=== PATIENT | male | born 1980 | race Caucasian/White ===

== ENCOUNTER 2018-03-25 07:48 | Emergency (ER) | payer MEDICAID ==
[~2018-03-25] VITALS: Ht 177.8 cm; Wt 81.8 kg
[~2018-03-25 07:48] MED LIST: ACET-2119 PO; ARIP5TAB4 PO; BENZ1TAB7 PO; CLON-528 PO; CLON0.1T PO; DIAZ10TA PO; LEVO112T39 PO; MAGN800O PO; METO-539 PO; METO50TA7 PO; MULT1TAB74 PO; OMEP20CA10 PO; P-EP-35 PO; POLY119P2 PO
[2018-03-25 08:03] VITALS: BP 118/82
[2018-03-25] MEDS ORDERED: TETanus/Pertussis (Acell)/Diphther VAC/PF (Tdap-Adult) 0.5ml syringe IM ONE (08:45)
== END 2018-03-25 09:33 | disposition home or self-care (01) ==
LOC: ER 07:49
DX: S61.012A Laceration without foreign body of left thumb without damage to nail, initial encounter (principal); F43.10 Post-traumatic stress disorder, unspecified; Z79.899 Other long term (current) drug therapy; W45.8XXA Other foreign body or object entering through skin, initial encounter; Y93.E8 Activity, other personal hygiene; Y99.8 Other external cause status; Y92.89 Other specified places as the place of occurrence of the external cause
CPT/HCPCS: 12001; 90471; 90715; 99283

== ENCOUNTER 2018-10-18 10:02 | Inpatient (IN) | payer MEDICAID ==
[~2018-10-18] VITALS: Ht 180.3 cm; Wt 70.0 kg
[~2018-10-18 10:02] MED LIST changes: -ACET-2119 PO; +CIPR-230 PO; +METR-211 PO
[2018-10-18] MEDS ORDERED: normal saline 1000ML IV soln IV ONE (10:20)
[2018-10-18] MEDS ORDERED: iohexol 300mg/ml 100ml inj. ONE (10:23)
[2018-10-18] MEDS ORDERED: LORazepam 2 mg/ml vial IM ONE ×2 (10:25→11:05)
[2018-10-18 11:22] LABS: BASOPHILS % (AUTO) 0.5 % (0-1); EOSINOPHILS # (AUTO) 0.1 X10'3 (0-0.9); EOSINOPHILS % (AUTO) 1.1 % (0-6); HEMOGLOBIN 14.4 g/dl (14.0-17.9); LYMPHOCYTES # (AUTO) 1.3 X10'3 (1.1-4.8); LYMPHOCYTES % (AUTO) 16.5 % (21-51); MEAN CORPUSCULAR HEMOGLOBIN 31.4 PG (27.0-31.0); MEAN CORPUSCULAR HGB CONC 32.6 % (33.0-36.5); MEAN CORPUSCULAR VOLUME 96.3 FL (78-98); MEAN PLATELET VOLUME 8.6 FL (7.4-10.4); MONOCYTES # (AUTO) 0.4 X10'3 (0-0.9); MONOCYTES % (AUTO) 5.2 % (2-12); NEUTROPHILS # (AUTO) 6.2 X10'3 (1.8-7.7); NEUTROPHILS % (AUTO) 76.7 % (42-75); PLATELET COUNT 563 X10'3 (140-440); RED BLOOD COUNT 4.57 X10'6 (4.70-6.10); RED CELL DISTRIBUTION WIDTH 14.2 % (11.5-14.5); WHITE BLOOD COUNT 8.1 X10'3 (4.5-11.0)
[2018-10-18 11:39] LABS: INR 1.2 INR; PARTIAL THROMBOPLASTIN TIME 32 SECONDS (22-32); PROTHROMBIN TIME 11.9 SECONDS (9.0-12.0)
[2018-10-18 12:04] LABS: ALANINE AMINOTRANSFERASE 48 U/L (12-78); ALBUMIN 2.9 G/DL (3.4-5.0); ALBUMIN/GLOBULIN RATIO 0.6 (1.1-1.5); ALKALINE PHOSPHATASE 82 IU/L (46-116); ANION GAP 9 (8-16); ASPARTATE AMINO TRANSFERASE 54 U/L (10-37); BILIRUBIN,TOTAL 0.3 MG/DL (0.1-1.0); BLOOD UREA NITROGEN 14 MG/DL (7-18); BUN/CREATININE RATIO 14.1 (5.4-32.0); CALCIUM 9.1 MG/DL (8.5-10.1); CHLORIDE 105 MMOL/L (99-107); CREATININE 0.99 MG/DL (0.60-1.10); GLUCOSE 89 MG/DL (70-104); MAGNESIUM 1.6 MG/DL (1.5-2.4); SODIUM 144 MMOL/L (135-145); TOTAL CARBON DIOXIDE 29.6 MMOL/L (24-32); TOTAL PROTEIN 7.9 G/DL (6.4-8.2); eGFR 85 ML/MIN
[2018-10-18] MEDS ORDERED: morphine 4 MG/ML inj SYRINge IM ONE (12:05)
[2018-10-18] MEDS ORDERED: ondansetron 4mg rapidly disintigrating tab PO ONE (12:05)
--- NOTE | 2018-10-18 16:21 | NUR ---
SPOKE RADHA YEPEZ AT BEDSIDE IN E.D. SHE STATES THAT HH HAS NOT VISITED YET, AND THAT THERE IS NOT ENOUGH STAFFING, TO CARE FOR WOUND, AND WOUND IS TOO COMPLEX TO ADEQUATELY CARE FOR IT AT THEIR HOME. SPOKE WITH IAN AT [facility], SHE VERIFIED THAT PATIENT WILL BE OPENED ON SUNDAY. PLAN: PATIENT TO BE ADMITTED OVER WEEKEND FOR WOUND CARE, THEN OPEN WITH [facility] ON . DISCUSSED WITH DR OLSON, AND WITH CHINMAY. CALL SURYA [phone] AT TIME OF DISCHARGE, AND SHE CAN ARRANGE TRANSPORTATION.
[2018-10-18] MEDS ORDERED: LORazepam 2 mg/ml vial IV ONE (16:40)
[2018-10-18] MEDS ORDERED: acetaminophen 325mg tablet PO PRN (17:20)
[2018-10-18] MEDS ORDERED: magnesium hydroxide 30ml (MOM) UD suspension PO PRN (17:20)
[2018-10-18] MEDS ORDERED: cloNIDine 0.1 mg tablet PO PRN (17:20)
[2018-10-18] MEDS ORDERED: mag hydrox/Alum hydrox/simeth 30ml oral suspension PO PRN (17:20)
[2018-10-18] MEDS ORDERED: ondansetron/PF 4mg/2ml inj IV PRN (17:20)
--- NOTE | 2018-10-18 17:27 | NUR ---
UA cancelled by Dr Soto
--- NOTE | 2018-10-18 18:30 | NUR ---
recieved report and assumed care of pt
[2018-10-18] MEDS: polyethylene glycol 3350 17gm powd pack PO SCH (20:00)
[2018-10-18] MEDS: metroNIDAZOLE 500mg tablet PO SCH (20:11)
[2018-10-18] MEDS: loratadine/pseudoephedrine TAB.SR.12Hour PO SCH (20:12)
[2018-10-18] MEDS: aripiprazole 5mg tablet PO SCH (20:12)
[2018-10-18] MEDS: benztropine 1mg tablet PO SCH (20:12)
[2018-10-18] MEDS: clonazePAM 0.5mg tablet PO SCH (20:12)
[2018-10-18] MEDS: metoprolol succinate 25mg (24-HOUR) SR. Tablet PO SCH (20:13)
--- NOTE | 2018-10-18 20:27 | NUR ---
pt had incontinent episode. when cleaning pt up noticied raya area is bright red. nurse healthcare manager informed me that pt wears briefs at home
[2018-10-18] MEDS: ciprofloxacin 250mg tablet PO SCH (22:00)
[2018-10-18 23:32] LABS: CLARITY,URINE CLEAR (Clear); COLOR,URINE YELLOW (Yellow); UA COLLECTION TYPE STRAIGHT CATH
[2018-10-18 23:33] LABS: GLUCOSE, URINE NEGATIVE (Neg); KETONES,URINE NEGATIVE (Neg); LEUKOCYTE ESTERASE ,URINE NEGATIVE (Neg); NITRITES, URINE NEGATIVE (Neg); OCCULT BLOOD,URINE NEGATIVE (Neg); PROTEIN,URINE NEGATIVE (Neg); UROBILINOGEN,URINE 0.2 E.U/dL (0.2-1.0)
--- NOTE | 2018-10-19 00:49 | NUR ---
report called to surgical corsetier
[2018-10-19 01:00] VITALS: BP 111/68
[2018-10-19 06:38] LABS: BASOPHILS % (AUTO) 0.4 % (0-1); EOSINOPHILS # (AUTO) 0.1 X10'3 (0-0.9); EOSINOPHILS % (AUTO) 1.9 % (0-6); HEMATOCRIT 39.1 % (42.0-52.0); LYMPHOCYTES # (AUTO) 1.2 X10'3 (1.1-4.8); LYMPHOCYTES % (AUTO) 15.9 % (21-51); MEAN CORPUSCULAR HEMOGLOBIN 32.4 PG (27.0-31.0); MEAN CORPUSCULAR HGB CONC 33.2 % (33.0-36.5); MEAN CORPUSCULAR VOLUME 97.5 FL (78-98); MONOCYTES # (AUTO) 0.6 X10'3 (0-0.9); MONOCYTES % (AUTO) 7.3 % (2-12); NEUTROPHILS # (AUTO) 5.8 X10'3 (1.8-7.7); NEUTROPHILS % (AUTO) 74.5 % (42-75); PLATELET COUNT 427 X10'3 (140-440); RED CELL DISTRIBUTION WIDTH 14.1 % (11.5-14.5); WHITE BLOOD COUNT 7.7 X10'3 (4.5-11.0)
[2018-10-19 06:44] LABS: ALBUMIN 2.5 G/DL (3.4-5.0); ANION GAP 9 (8-16); BLOOD UREA NITROGEN 14 MG/DL (7-18); BUN/CREATININE RATIO 14.4 (5.4-32.0); CALCIUM 8.7 MG/DL (8.5-10.1); CHLORIDE 107 MMOL/L (99-107); CREATININE 0.97 MG/DL (0.60-1.10); GLUCOSE 95 MG/DL (70-104); POTASSIUM 4.1 MMOL/L (3.5-5.1); SODIUM 145 MMOL/L (135-145); TOTAL CARBON DIOXIDE 29.2 MMOL/L (24-32); eGFR 87 ML/MIN
--- NOTE | 2018-10-19 06:48 | NUR ---
Problems reprioritized. Patient report given, questions answered & plan of care reviewed with Roxanna RN
--- NOTE | 2018-10-19 06:50 | NUR ---
Patient in room LORIN 346. I have received report from FRANCOISE Alexandra and had the opportunity to ask questions and assume patient care.
[2018-10-19 08:00] VITALS: BP 111/67
[2018-10-19] MEDS: polyethylene glycol 3350 17gm powd pack PO SCH (08:00)
[2018-10-19] MEDS: loratadine/pseudoephedrine TAB.SR.12Hour PO SCH ×2 (08:00→20:55)
[2018-10-19] MEDS: metoprolol succinate 25mg (24-HOUR) SR. Tablet PO SCH ×2 (08:44→20:48)
[2018-10-19] MEDS: benztropine 1mg tablet PO SCH ×2 (08:44→20:48)
[2018-10-19] MEDS: levoTHYROXINE 112mcg tablet PO SCH (08:44)
[2018-10-19] MEDS: multivitamins, therapeutics tablet PO SCH (08:45)
[2018-10-19] MEDS: clonazePAM 0.5mg tablet PO SCH ×3 (08:45→20:48)
[2018-10-19] MEDS: aripiprazole 5mg tablet PO SCH ×2 (08:45→20:48)
[2018-10-19] MEDS: enoxaparin 40mg/0.4ml syringe SUBCUT SCH (08:46)
[2018-10-19] MEDS: metroNIDAZOLE 500mg tablet PO SCH ×3 (08:46→20:48)
[2018-10-19] MEDS: pantoprazole 40mg Tablet.DR PO SCH (09:04)
[2018-10-19] MEDS: ciprofloxacin 250mg tablet PO SCH ×2 (10:40→22:37)
[2018-10-19 11:00] VITALS: BP 107/48
[2018-10-19] MEDS ORDERED: polyethylene glycol 3350 17gm powd pack PO PRN (11:05)
[2018-10-19] MEDS: HYDROcodone/acetaminophen 5mg/325mg tablet PO PRN ×2 (14:23→23:28)
--- NOTE | 2018-10-19 16:15 | NUR ---
Attempted X3 to provide sitz bath for this patient. Patient not tolerating sitting on toilet for sitz bath, used raya-bottle to gently clean perianal rectal abcess. Patient tolerated fairly well. will continue to monitor.
--- NOTE | 2018-10-19 18:30 | NUR ---
Problems reprioritized. Patient report given, questions answered & plan of care reviewed with FRANCOISE Díaz.
[2018-10-19 20:00] VITALS: BP 113/68
[2018-10-19] MEDS: lactobacillus rhamnosus 10,000 MMU CELLS/CAPSULE PO SCH (20:48)
[2018-10-20] VITALS: BP 119/51
[2018-10-20 06:18] LABS: BASOPHILS % (AUTO) 0.4 % (0-1); EOSINOPHILS # (AUTO) 0.1 X10'3 (0-0.9); HEMATOCRIT 40.9 % (42.0-52.0); HEMOGLOBIN 13.4 g/dl (14.0-17.9); LYMPHOCYTES # (AUTO) 1.1 X10'3 (1.1-4.8); LYMPHOCYTES % (AUTO) 10.7 % (21-51); MEAN CORPUSCULAR HEMOGLOBIN 32.1 PG (27.0-31.0); MEAN CORPUSCULAR HGB CONC 32.8 % (33.0-36.5); MEAN CORPUSCULAR VOLUME 97.8 FL (78-98); MEAN PLATELET VOLUME 8.5 FL (7.4-10.4); MONOCYTES # (AUTO) 0.5 X10'3 (0-0.9); MONOCYTES % (AUTO) 5.1 % (2-12); NEUTROPHILS # (AUTO) 8.8 X10'3 (1.8-7.7); NEUTROPHILS % (AUTO) 82.8 % (42-75); PLATELET COUNT 447 X10'3 (140-440); RED BLOOD COUNT 4.18 X10'6 (4.70-6.10); RED CELL DISTRIBUTION WIDTH 14.3 % (11.5-14.5); WHITE BLOOD COUNT 10.5 X10'3 (4.5-11.0)
[2018-10-20 06:30] VITALS: BP 108/55
[2018-10-20 06:30] LABS: ALBUMIN 2.6 G/DL (3.4-5.0); ANION GAP 7 (8-16); BLOOD UREA NITROGEN 12 MG/DL (7-18); BUN/CREATININE RATIO 12.1 (5.4-32.0); CALCIUM 9.1 MG/DL (8.5-10.1); CHLORIDE 105 MMOL/L (99-107); CREATININE 0.99 MG/DL (0.60-1.10); GLUCOSE 96 MG/DL (70-104); POTASSIUM 4.3 MMOL/L (3.5-5.1); SODIUM 142 MMOL/L (135-145); eGFR 85 ML/MIN
--- NOTE | 2018-10-20 06:30 | NUR ---
Patient in room LORIN 346. I have received report from FRANCOISE Díaz and had the opportunity to ask questions and assume patient care.
[2018-10-20] MEDS: loratadine/pseudoephedrine TAB.SR.12Hour PO SCH ×2 (07:49→20:00)
[2018-10-20] MEDS: enoxaparin 40mg/0.4ml syringe SUBCUT SCH (07:49)
[2018-10-20] MEDS: benztropine 1mg tablet PO SCH ×2 (07:50→22:20)
[2018-10-20] MEDS: metoprolol succinate 25mg (24-HOUR) SR. Tablet PO SCH ×2 (07:50→21:00)
[2018-10-20] MEDS: clonazePAM 0.5mg tablet PO SCH ×3 (07:50→22:20)
[2018-10-20] MEDS: levoTHYROXINE 112mcg tablet PO SCH (07:50)
[2018-10-20] MEDS: metroNIDAZOLE 500mg tablet PO SCH ×3 (07:50→22:20)
[2018-10-20] MEDS: multivitamins, therapeutics tablet PO SCH (07:50)
[2018-10-20] MEDS: aripiprazole 5mg tablet PO SCH ×2 (07:51→22:20)
[2018-10-20] MEDS: pantoprazole 40mg Tablet.DR PO SCH (07:51)
[2018-10-20] MEDS: lactobacillus rhamnosus 10,000 MMU CELLS/CAPSULE PO SCH ×2 (07:51→22:20)
[2018-10-20] MEDS: ciprofloxacin 250mg tablet PO SCH ×2 (10:24→22:20)
[2018-10-20 11:00] VITALS: BP 93/74
--- NOTE | 2018-10-20 18:00 | NUR ---
Problems reprioritized. Patient report given, questions answered & plan of care reviewed with FRANCOISE Root.
--- NOTE | 2018-10-20 18:30 | NUR ---
Patient in room LORIN 346. I have received report from PIYUSH and had the opportunity to ask questions and assume patient care.
[2018-10-20 19:00] VITALS: BP 96/60
[2018-10-20] MEDS: nystatin 15 GM powder TP SCH (22:21)
[2018-10-21] VITALS: BP 102/70
--- NOTE | 2018-10-21 06:26 | NUR ---
Problems reprioritized. Patient report given, questions answered & plan of care reviewed with PARVIZ.
[2018-10-21 06:53] LABS: ALBUMIN 2.8 G/DL (3.4-5.0); ANION GAP 4 (8-16); BLOOD UREA NITROGEN 12 MG/DL (7-18); BUN/CREATININE RATIO 11.8 (5.4-32.0); CALCIUM 9.5 MG/DL (8.5-10.1); CHLORIDE 104 MMOL/L (99-107); CREATININE 1.02 MG/DL (0.60-1.10); GLUCOSE 98 MG/DL (70-104); POTASSIUM 4.4 MMOL/L (3.5-5.1); SODIUM 140 MMOL/L (135-145); TOTAL CARBON DIOXIDE 32.5 MMOL/L (24-32); eGFR 82 ML/MIN
[2018-10-21 06:59] LABS: BASOPHILS % (AUTO) 0.3 % (0-1); EOSINOPHILS # (AUTO) 0.1 X10'3 (0-0.9); EOSINOPHILS % (AUTO) 1.1 % (0-6); HEMATOCRIT 43.1 % (42.0-52.0); HEMOGLOBIN 14.3 g/dl (14.0-17.9); LYMPHOCYTES # (AUTO) 1.4 X10'3 (1.1-4.8); LYMPHOCYTES % (AUTO) 15.1 % (21-51); MEAN CORPUSCULAR HGB CONC 33.1 % (33.0-36.5); MEAN CORPUSCULAR VOLUME 96.8 FL (78-98); MEAN PLATELET VOLUME 9.1 FL (7.4-10.4); MONOCYTES # (AUTO) 0.6 X10'3 (0-0.9); MONOCYTES % (AUTO) 6.6 % (2-12); NEUTROPHILS # (AUTO) 6.9 X10'3 (1.8-7.7); NEUTROPHILS % (AUTO) 76.9 % (42-75); PLATELET COUNT 473 X10'3 (140-440); RED BLOOD COUNT 4.45 X10'6 (4.70-6.10); RED CELL DISTRIBUTION WIDTH 14.2 % (11.5-14.5)
[2018-10-21 07:00] VITALS: BP 114/69
[2018-10-21] MEDS: metoprolol succinate 25mg (24-HOUR) SR. Tablet PO SCH ×2 (07:45→21:34)
[2018-10-21] MEDS: levoTHYROXINE 112mcg tablet PO SCH (07:52)
[2018-10-21] MEDS: lactobacillus rhamnosus 10,000 MMU CELLS/CAPSULE PO SCH ×2 (07:52→21:34)
[2018-10-21] MEDS: clonazePAM 0.5mg tablet PO SCH ×3 (07:52→21:34)
[2018-10-21] MEDS: enoxaparin 40mg/0.4ml syringe SUBCUT SCH (07:52)
[2018-10-21] MEDS: aripiprazole 5mg tablet PO SCH ×2 (07:52→21:34)
[2018-10-21] MEDS: multivitamins, therapeutics tablet PO SCH (07:52)
[2018-10-21] MEDS: benztropine 1mg tablet PO SCH ×2 (07:52→21:34)
[2018-10-21] MEDS: pantoprazole 40mg Tablet.DR PO SCH (07:52)
[2018-10-21] MEDS: metroNIDAZOLE 500mg tablet PO SCH ×3 (07:52→21:34)
[2018-10-21] MEDS: loratadine/pseudoephedrine TAB.SR.12Hour PO SCH ×2 (07:53→21:34)
[2018-10-21] MEDS: nystatin 15 GM powder TP SCH ×2 (07:57→21:36)
--- NOTE | 2018-10-21 08:21 | NUR ---
CLEANED WOUND WITH STERILE WATER AFTER BM. LEFT OPEN TO AIR Addendum: 10/21/18 at 0822 by Connie Jeong RN Amended: Links added.
[2018-10-21] MEDS: ciprofloxacin 250mg tablet PO SCH ×2 (10:28→21:34)
[2018-10-21 11:30] VITALS: BP 109/43
--- NOTE | 2018-10-21 18:13 | NUR ---
Problems reprioritized. Patient report given, questions answered & plan of care reviewed with STEVE OWUSU.
--- NOTE | 2018-10-21 18:30 | NUR ---
Patient in room LORIN 346. I have received report from PARVIZ and had the opportunity to ask questions and assume patient care.
[2018-10-21 19:00] VITALS: BP 109/68
[2018-10-22] VITALS: BP 105/62
[2018-10-22 05:18] LABS: BASOPHILS % (AUTO) 0.5 % (0-1); EOSINOPHILS # (AUTO) 0.1 X10'3 (0-0.9); HEMATOCRIT 44.4 % (42.0-52.0); HEMOGLOBIN 14.7 g/dl (14.0-17.9); LYMPHOCYTES # (AUTO) 1.4 X10'3 (1.1-4.8); LYMPHOCYTES % (AUTO) 16.3 % (21-51); MEAN CORPUSCULAR HEMOGLOBIN 31.9 PG (27.0-31.0); MEAN CORPUSCULAR HGB CONC 33.1 % (33.0-36.5); MEAN CORPUSCULAR VOLUME 96.4 FL (78-98); MONOCYTES # (AUTO) 0.6 X10'3 (0-0.9); MONOCYTES % (AUTO) 6.9 % (2-12); NEUTROPHILS # (AUTO) 6.6 X10'3 (1.8-7.7); NEUTROPHILS % (AUTO) 75.3 % (42-75); PLATELET COUNT 487 X10'3 (140-440); RED BLOOD COUNT 4.61 X10'6 (4.70-6.10); RED CELL DISTRIBUTION WIDTH 14.6 % (11.5-14.5); WHITE BLOOD COUNT 8.7 X10'3 (4.5-11.0)
[2018-10-22 05:26] LABS: ALBUMIN 2.8 G/DL (3.4-5.0); ANION GAP 7 (8-16); BLOOD UREA NITROGEN 17 MG/DL (7-18); BUN/CREATININE RATIO 13.5 (5.4-32.0); CALCIUM 9.3 MG/DL (8.5-10.1); CHLORIDE 103 MMOL/L (99-107); CREATININE 1.26 MG/DL (0.60-1.10); GLUCOSE 104 MG/DL (70-104); POTASSIUM 4.4 MMOL/L (3.5-5.1); SODIUM 141 MMOL/L (135-145); TOTAL CARBON DIOXIDE 31.3 MMOL/L (24-32); eGFR 64 ML/MIN
--- NOTE | 2018-10-22 06:56 | NUR ---
Problems reprioritized. Patient report given, questions answered & plan of care reviewed with PARVIZ.
[2018-10-22 07:00] VITALS: BP 106/65
[2018-10-22] MEDS: metoprolol succinate 25mg (24-HOUR) SR. Tablet PO SCH ×2 (07:16→20:16)
[2018-10-22] MEDS: levoTHYROXINE 112mcg tablet PO SCH (07:16)
[2018-10-22] MEDS: multivitamins, therapeutics tablet PO SCH (07:16)
[2018-10-22] MEDS: pantoprazole 40mg Tablet.DR PO SCH (07:16)
[2018-10-22] MEDS: lactobacillus rhamnosus 10,000 MMU CELLS/CAPSULE PO SCH ×2 (07:16→20:16)
[2018-10-22] MEDS: benztropine 1mg tablet PO SCH ×2 (07:16→20:17)
[2018-10-22] MEDS: metroNIDAZOLE 500mg tablet PO SCH ×3 (07:16→20:16)
[2018-10-22] MEDS: aripiprazole 5mg tablet PO SCH ×2 (07:16→20:17)
[2018-10-22] MEDS: clonazePAM 0.5mg tablet PO SCH ×3 (07:16→20:16)
[2018-10-22] MEDS: loratadine/pseudoephedrine TAB.SR.12Hour PO SCH ×2 (07:16→20:17)
[2018-10-22] MEDS: enoxaparin 40mg/0.4ml syringe SUBCUT SCH (07:17)
[2018-10-22] MEDS: nystatin 15 GM powder TP SCH ×2 (07:17→20:17)
[2018-10-22] MEDS: ciprofloxacin 250mg tablet PO SCH ×2 (10:17→22:11)
[2018-10-22 11:26] VITALS: BP 109/70
--- NOTE | 2018-10-22 18:17 | NUR ---
Problems reprioritized. Patient report given, questions answered & plan of care reviewed with GRACIELA OWUSU.
[2018-10-22 20:00] VITALS: BP 115/71
[2018-10-23] VITALS: BP 108/60
[2018-10-23 06:32] LABS: BASOPHILS # (AUTO) 0.1 X10'3 (0-0.2); BASOPHILS % (AUTO) 0.8 % (0-1); EOSINOPHILS # (AUTO) 0.1 X10'3 (0-0.9); EOSINOPHILS % (AUTO) 1.1 % (0-6); HEMATOCRIT 45.5 % (42.0-52.0); HEMOGLOBIN 15.1 g/dl (14.0-17.9); LYMPHOCYTES # (AUTO) 1.4 X10'3 (1.1-4.8); LYMPHOCYTES % (AUTO) 17.3 % (21-51); MEAN CORPUSCULAR HEMOGLOBIN 32.3 PG (27.0-31.0); MEAN CORPUSCULAR HGB CONC 33.2 % (33.0-36.5); MEAN CORPUSCULAR VOLUME 97.5 FL (78-98); MEAN PLATELET VOLUME 9.1 FL (7.4-10.4); MONOCYTES # (AUTO) 0.5 X10'3 (0-0.9); MONOCYTES % (AUTO) 6.4 % (2-12); NEUTROPHILS % (AUTO) 74.4 % (42-75); PLATELET COUNT 456 X10'3 (140-440); RED BLOOD COUNT 4.67 X10'6 (4.70-6.10); RED CELL DISTRIBUTION WIDTH 14.2 % (11.5-14.5); WHITE BLOOD COUNT 8.1 X10'3 (4.5-11.0)
[2018-10-23 06:34] LABS: ALBUMIN 2.8 G/DL (3.4-5.0); ANION GAP 6 (8-16); BLOOD UREA NITROGEN 18 MG/DL (7-18); BUN/CREATININE RATIO 16.7 (5.4-32.0); CHLORIDE 101 MMOL/L (99-107); CREATININE 1.08 MG/DL (0.60-1.10); GLUCOSE 86 MG/DL (70-104); POTASSIUM 4.1 MMOL/L (3.5-5.1); SODIUM 139 MMOL/L (135-145); TOTAL CARBON DIOXIDE 31.8 MMOL/L (24-32); eGFR 77 ML/MIN
--- NOTE | 2018-10-23 06:40 | NUR ---
Patient in room LORIN 346. I have received report from Bre OWUSU and had the opportunity to ask questions and assume patient care.
[2018-10-23 07:06] VITALS: BP 114/70
[2018-10-23] MEDS: pantoprazole 40mg Tablet.DR PO SCH (07:54)
[2018-10-23] MEDS: clonazePAM 0.5mg tablet PO SCH ×2 (07:54→12:20)
[2018-10-23] MEDS: benztropine 1mg tablet PO SCH (07:55)
[2018-10-23] MEDS: lactobacillus rhamnosus 10,000 MMU CELLS/CAPSULE PO SCH (07:55)
[2018-10-23] MEDS: aripiprazole 5mg tablet PO SCH (07:55)
[2018-10-23] MEDS: levoTHYROXINE 112mcg tablet PO SCH (07:55)
[2018-10-23] MEDS: metoprolol succinate 25mg (24-HOUR) SR. Tablet PO SCH (07:55)
[2018-10-23] MEDS: multivitamins, therapeutics tablet PO SCH (07:55)
[2018-10-23] MEDS: metroNIDAZOLE 500mg tablet PO SCH ×2 (07:55→12:20)
[2018-10-23] MEDS: nystatin 15 GM powder TP SCH (07:56)
[2018-10-23] MEDS: enoxaparin 40mg/0.4ml syringe SUBCUT SCH (07:56)
[2018-10-23] MEDS: loratadine/pseudoephedrine TAB.SR.12Hour PO SCH (08:04)
--- NOTE | 2018-10-23 09:08 | NUR ---
Initial: Pt admitted secondary to a perirectal abscess now s/p I&D. Pt noted to be developmentally delayed and noncommunicative. Pt currently on a lactose free diet with documented PO intake 100% meeting nutrient needs to aid in wound healing. No edema. [facility] 10/21. Will continue to follow. Recommendations: 1) Continue with lactose free diet 2) MVI for wounds 3) Monitor need for additional bowel care 4) Wt per rx Addendum: 10/23/18 at [address] Amended: Links added.
[2018-10-23] MEDS: ciprofloxacin 250mg tablet PO SCH (10:06)
--- NOTE | 2018-10-23 15:12 | NUR ---
patient seen by DR Vazquez is for discharge. Report given to staff in detention [place]. Awaiting pickup. Patient rectal wound DIRECTOR FEDERAL per dr request.
--- NOTE | 2018-10-23 15:55 | NUR ---
All instructions given to patients caregiver crystal. and supplies for dressing change . Patient DC via private car home 1600hrs.
[2018-10-24] MEDS ORDERED: CEPH500C5 PO (15:54)
== END 2018-10-23 15:56 | disposition home health service (06) | DRG 254 ==
LOC: ER 10:03 → ED HOLD 17:16 → OBSVTOIN 17:16 → SUR 3N 10-19 00:52
PROVIDERS: ADMIT Hospitalist; ATTEND Internal Medicine
PROC: BW211ZZ Computerized Tomography (CT Scan) of Abdomen and Pelvis using Low Osmolar Contrast (ICD-10-PCS; principal; 2018-10-18)
DX: K61.1 Rectal abscess (principal); L89.159 Pressure ulcer of sacral region, unspecified stage; E03.9 Hypothyroidism, unspecified; I10 Essential (primary) hypertension; R62.50 Unspecified lack of expected normal physiological development in childhood; Z91.011 Allergy to milk products; Z79.899 Other long term (current) drug therapy
CPT/HCPCS: 36415; 71045; 74177; 80048; 80053; 81003; 83605; 83735; 84145; 85025; 85610; 85730; 87040; 87070; 93005; G0378; J1650; J2060; J2270; J3490; Q9967

== ENCOUNTER 2018-10-24 13:37 | Emergency (ER) | payer MEDICAID ==
[~2018-10-24] VITALS: Ht 172.7 cm; Wt 72.7 kg
[~2018-10-24 13:37] MED LIST changes: -DIAZ10TA PO; -MAGN800O PO
[2018-10-24 15:04] LABS: BASOPHILS # (AUTO) 0.1 X10'3 (0-0.2); BASOPHILS % (AUTO) 0.7 % (0-1); EOSINOPHILS # (AUTO) 0.1 X10'3 (0-0.9); EOSINOPHILS % (AUTO) 1.1 % (0-6); LYMPHOCYTES % (AUTO) 13.7 % (21-51); MEAN CORPUSCULAR HEMOGLOBIN 31.3 PG (27.0-31.0); MEAN CORPUSCULAR HGB CONC 32.6 % (33.0-36.5); MEAN CORPUSCULAR VOLUME 95.9 FL (78-98); MEAN PLATELET VOLUME 9.2 FL (7.4-10.4); MONOCYTES # (AUTO) 0.5 X10'3 (0-0.9); MONOCYTES % (AUTO) 6.4 % (2-12); NEUTROPHILS # (AUTO) 5.8 X10'3 (1.8-7.7); NEUTROPHILS % (AUTO) 78.1 % (42-75); PLATELET COUNT 425 X10'3 (140-440); RED BLOOD COUNT 4.79 X10'6 (4.70-6.10); RED CELL DISTRIBUTION WIDTH 14.2 % (11.5-14.5); WHITE BLOOD COUNT 7.5 X10'3 (4.5-11.0)
[2018-10-24 15:10] LABS: ALANINE AMINOTRANSFERASE 34 U/L (12-78); ALBUMIN/GLOBULIN RATIO 0.6 (1.1-1.5); ALKALINE PHOSPHATASE 70 IU/L (46-116); ANION GAP 7 (8-16); BILIRUBIN,TOTAL 0.4 MG/DL (0.1-1.0); BLOOD UREA NITROGEN 21 MG/DL (7-18); BUN/CREATININE RATIO 19.4 (5.4-32.0); CALCIUM 8.5 MG/DL (8.5-10.1); CHLORIDE 101 MMOL/L (99-107); CREATININE 1.08 MG/DL (0.60-1.10); GLUCOSE 114 MG/DL (70-104); SODIUM 140 MMOL/L (135-145); TOTAL CARBON DIOXIDE 32.2 MMOL/L (24-32); TOTAL PROTEIN 7.8 G/DL (6.4-8.2); eGFR 77 ML/MIN
[2018-10-24 15:13] LABS: ASPARTATE AMINO TRANSFERASE 38 U/L (10-37); POTASSIUM 3.9 MMOL/L (3.5-5.1)
--- NOTE | 2018-10-24 15:30 | NUR ---
CALLED LAB, THEY HAVE RECEIVED THE PATIENTS URINE SAMPLE
[2018-10-24 15:41] LABS: CLARITY,URINE CLOUDY (Clear); COLOR,URINE YELLOW (Yellow); GLUCOSE, URINE NEGATIVE (Neg); KETONES,URINE NEGATIVE (Neg); LEUKOCYTE ESTERASE ,URINE TRACE (Neg); NITRITES, URINE POSITIVE (Neg); OCCULT BLOOD,URINE LARGE (Neg); PH,URINE 5.5 (4.8-8.0); PROTEIN,URINE 100 mg/dl (Neg); UROBILINOGEN,URINE 0.2 E.U/dL (0.2-1.0)
[2018-10-24 15:42] LABS: UA COLLECTION TYPE FOLEY CATH
[2018-10-24 15:52] LABS: BACTERIA,URINE 1+ /HPF (Neg); MUCUS STRANDS FEW /LPF (Neg); SQUAMOUS EPITHELIAL CELL,UR FEW /LPF (FEW); URIC ACID CRYSTALS 3+ /HPF (NEGATIVE)
[2018-10-24 15:53] LABS: WBC,URINE 0-4 /HPF (0-4)
[2018-10-24] MEDS ORDERED: CEPH500C5 PO (15:54)
--- NOTE | 2018-10-24 16:08 | NUR ---
per dr back, mandel catheter removed without difficulty, patient tolerated well & right sl piv dcd site clear, catheter appears intact
[2018-10-24 16:54] VITALS: BP 118/70
== END 2018-10-24 16:55 | disposition home or self-care (01) ==
LOC: ER 13:38
DX: N39.0 Urinary tract infection, site not specified (principal); Z91.011 Allergy to milk products; Z79.2 Long term (current) use of antibiotics; Z79.899 Other long term (current) drug therapy; W19.XXXA Unspecified fall, initial encounter; Y93.89 Activity, other specified; Y92.89 Other specified places as the place of occurrence of the external cause; Y99.8 Other external cause status
CPT/HCPCS: 36415; 80053; 81001; 85025; 87088; 99284

== ENCOUNTER 2018-11-12 15:34 | Emergency (ER) | payer MEDICAID ==
[~2018-11-12] VITALS: Ht 177.8 cm; Wt 73.2 kg
[~2018-11-12 15:34] MED LIST changes: +CEPH500C5 PO; +METR-159 PO; -METR-211 PO
--- NOTE | 2018-11-12 16:09 | NUR ---
Several attempts to obtain EKG, pt keeps taking lead stickers off and unable to cooperate. To report to Dr London.
--- NOTE | 2018-11-12 16:15 | NUR ---
MD RILEY AWARE PT NOT ALLOWING EKG OR CARDIAC MONITORING TO BE COMPLETED, NO NEW ORDERS.
[2018-11-12 16:43] LABS: BASOPHILS % (AUTO) 0.5 % (0-1); EOSINOPHILS # (AUTO) 0.2 X10'3 (0-0.9); EOSINOPHILS % (AUTO) 2.9 % (0-6); HEMATOCRIT 43.5 % (42.0-52.0); HEMOGLOBIN 14.6 g/dl (14.0-17.9); LYMPHOCYTES # (AUTO) 0.6 X10'3 (1.1-4.8); LYMPHOCYTES % (AUTO) 11.5 % (21-51); MEAN CORPUSCULAR HEMOGLOBIN 32.4 PG (27.0-31.0); MEAN CORPUSCULAR HGB CONC 33.4 % (33.0-36.5); MEAN CORPUSCULAR VOLUME 96.9 FL (78-98); MEAN PLATELET VOLUME 9.7 FL (7.4-10.4); MONOCYTES # (AUTO) 0.3 X10'3 (0-0.9); NEUTROPHILS # (AUTO) 4.2 X10'3 (1.8-7.7); NEUTROPHILS % (AUTO) 79.1 % (42-75); PLATELET COUNT 161 X10'3 (140-440); RED BLOOD COUNT 4.49 X10'6 (4.70-6.10); RED CELL DISTRIBUTION WIDTH 15.6 % (11.5-14.5); WHITE BLOOD COUNT 5.4 X10'3 (4.5-11.0)
[2018-11-12 17:05] LABS: PARTIAL THROMBOPLASTIN TIME 29 SECONDS (22-32); PROTHROMBIN TIME 10.6 SECONDS (9.0-12.0)
[2018-11-12 17:21] LABS: ALANINE AMINOTRANSFERASE 38 U/L (12-78); ALBUMIN 3.8 G/DL (3.4-5.0); ALKALINE PHOSPHATASE 76 IU/L (46-116); ANION GAP 10 (8-16); ASPARTATE AMINO TRANSFERASE 34 U/L (10-37); BILIRUBIN,TOTAL 0.4 MG/DL (0.1-1.0); BLOOD UREA NITROGEN 15 MG/DL (7-18); BUN/CREATININE RATIO 13.3 (5.4-32.0); CALCIUM 9.1 MG/DL (8.5-10.1); CHLORIDE 102 MMOL/L (99-107); CREATININE 1.13 MG/DL (0.60-1.10); GLUCOSE 107 MG/DL (70-104); POTASSIUM 4.3 MMOL/L (3.5-5.1); SODIUM 141 MMOL/L (135-145); TOTAL PROTEIN 7.8 G/DL (6.4-8.2); eGFR 73 ML/MIN
[2018-11-12] MEDS ORDERED: amox tr/potassium clavulanate 875/125mg TAB PO ONE (17:45)
[2018-11-12] MEDS ORDERED: AMOX-422 PO (18:10)
[2018-11-12 18:33] VITALS: BP 115/72
== END 2018-11-12 18:35 | disposition home or self-care (01) ==
LOC: ER 15:34
DX: J69.0 Pneumonitis due to inhalation of food and vomit (principal); Z91.011 Allergy to milk products; Z79.2 Long term (current) use of antibiotics; Z79.899 Other long term (current) drug therapy; Z79.01 Long term (current) use of anticoagulants
CPT/HCPCS: 36415; 71045; 80053; 83605; 83880; 84484; 85025; 85610; 85730; 87040; 99284

== ENCOUNTER → 2019-01-26 | Emergency (ER) | payer MEDICAID ==
[~2019-01-26] VITALS: Ht 188 cm; Wt 76.4 kg
[~2019-01-26] MED LIST changes: +CEPH-572 PO; -CIPR-230 PO; -METR-159 PO
[2019-01-26 09:27] VITALS: BP 129/55
== END | disposition home or self-care (01) ==
LOC: ER 09:22
DX: M79.675 Pain in left toe(s) (principal); R22.42 Localized swelling, mass and lump, left lower limb; Z91.011 Allergy to milk products; Z89.432 Acquired absence of left foot; Z79.2 Long term (current) use of antibiotics; Z79.899 Other long term (current) drug therapy
CPT/HCPCS: 73660; 99283

== ENCOUNTER 2022-06-28 08:26 | Inpatient (IN) | payer MEDICAID ==
[2022-06-28] VITALS (7 sets, daily range): BP systolic 103–139; BP diastolic 58–82
[~2022-06-28] VITALS: Ht 188 cm; Wt 71.6 kg
[~2022-06-28 08:26] MED LIST changes: +ARIP5TAB14 PO; -ARIP5TAB4 PO; -CEPH-572 PO; -CEPH500C5 PO; +MULT-620 PO; -MULT1TAB74 PO; -OMEP20CA10 PO; +OMEP20CA15 PO
[2022-06-28 09:39] LABS: BASOPHILS % (AUTO) 0 % (0-1); EOSINOPHILS % (AUTO) 0 % (0-6); HEMATOCRIT 51.8 % (42.0-52.0); HEMOGLOBIN 17.4 g/dl (14.0-17.9); LYMPHOCYTES # (AUTO) 0.6 X10'3 (1.1-4.8); LYMPHOCYTES % (AUTO) 3.1 % (21-51); MEAN CORPUSCULAR HEMOGLOBIN 31.9 PG (27.0-31.0); MEAN CORPUSCULAR HGB CONC 33.6 g/dL (33.0-36.5); MEAN CORPUSCULAR VOLUME 94.7 FL (78-98); MONOCYTES % (AUTO) 10.7 % (2-12); NEUTROPHILS # (AUTO) 17.7 X10'3 (1.8-7.7); NEUTROPHILS % (AUTO) 86.2 % (42-75); PLATELET COUNT 253 X10'3 (140-440); RED BLOOD COUNT 5.47 X10'6 (4.70-6.10); RED CELL DISTRIBUTION WIDTH 14.8 % (11.5-14.5); WHITE BLOOD COUNT 20.5 X10'3 (4.5-11.0)
[2022-06-28 09:46] LABS: ALANINE AMINOTRANSFERASE 13 U/L (12-78); ALBUMIN 2.8 G/DL (3.4-5.0); ALBUMIN/GLOBULIN RATIO 0.7 (1.1-1.5); ALKALINE PHOSPHATASE 116 IU/L (46-116); ANION GAP 9 (8-16); ASPARTATE AMINO TRANSFERASE 17 U/L (10-37); BILIRUBIN,TOTAL 0.9 MG/DL (0.1-1.0); BLOOD UREA NITROGEN 71 MG/DL (7-18); BUN/CREATININE RATIO 37.8 (5.4-32.0); CALCIUM 8.7 MG/DL (8.5-10.1); CHLORIDE 99 MMOL/L (99-107); CREATININE 1.88 MG/DL (0.60-1.10); GLUCOSE 127 MG/DL (70-104); SODIUM 134 MMOL/L (135-145); TOTAL CARBON DIOXIDE 25.6 MMOL/L (24-32); TOTAL PROTEIN 6.9 G/DL (6.4-8.2); eGFR 40 ML/MIN
[2022-06-28] MEDS ORDERED: CefTRIAXone 2gm/D5W 50ml BAG 50 ML IV ONE (10:10)
[2022-06-28] MEDS ORDERED: normal saline 1000ML IV soln IV ONE (10:10)
[2022-06-28 10:25] LABS: PLATELET ESTIMATE NORMAL; TOTAL CELLS COUNTED 100
[2022-06-28 10:27] LABS: MONOCYTES # (AUTO) 1.4 X10'3 (0-0.9)
[2022-06-28 11:37] LABS: GLUCOSE, URINE NEGATIVE (Neg); KETONES,URINE TRACE mg/dl (Neg); LEUKOCYTE ESTERASE ,URINE NEGATIVE (Neg); OCCULT BLOOD,URINE NEGATIVE (Neg); PROTEIN,URINE NEGATIVE (Neg)
[2022-06-28 11:56] LABS: COLOR,URINE BROWN (Yellow)
[2022-06-28 11:57] LABS: CLARITY,URINE CLEAR (Clear)
[2022-06-28 11:58] LABS: UA COLLECTION TYPE STRAIGHT CATH
[2022-06-28 12:02] LABS: NITRITES, URINE NEGATIVE (Neg)
[2022-06-28 12:05] LABS: BACTERIA,URINE NONE SEEN /HPF (Neg); MUCUS STRANDS NONE SEEN /LPF (Neg); RBC,URINE NONE SEEN /HPF (0-2); SQUAMOUS EPITHELIAL CELL,UR FEW /LPF (FEW); WBC,URINE 0-4 /HPF (0-4)
[2022-06-28 12:06] LABS: CELLULAR CAST 0-4 /LPF (NEGATIVE)
[2022-06-28] MEDS ORDERED: acetaminophen 325mg tablet PO PRN ×2 (13:30)
[2022-06-28] MEDS ORDERED: magnesium 2GM in 50ml NS 50 ML IV PRN (13:30)
[2022-06-28] MEDS: metroNIDAZOLE-Flagyl 500mg/NS 100 ML IV SCH ×2 (13:30→16:00)
[2022-06-28] MEDS ORDERED: potassium CL 10mEq/100ml bag 100 ML IV PRN (13:30)
[2022-06-28] MEDS ORDERED: POTASSIUM BICARB 20meq eff tab 20 MEQ TABLET.EFF PO PRN ×2 (13:30)
[2022-06-28] MEDS ORDERED: magnesium Cl slow-release 64mg tablet PO PRN (13:30)
[2022-06-28] MEDS: normal saline 1000ml 1,000 ML IV SCH ×2 (13:30→22:02)
[2022-06-28] MEDS ORDERED: HYDROcodone/acetaminophen 10/325mg tab PO PRN (13:30)
[2022-06-28] MEDS ORDERED: acetaminophen 650mg rectal suppository RC PRN (13:30)
[2022-06-28] MEDS ORDERED: HYDROcodone/acetaminophen 5mg/325mg tablet PO PRN (13:30)
[2022-06-28] MEDS ORDERED: bisacodyl 10mg suppository rectal RC PRN (13:30)
[2022-06-28] MEDS ORDERED: morphine 2 MG/ML inj. syringe IV PRN (13:30)
[2022-06-28] MEDS ORDERED: mag hydrox/Alum hydrox/simeth 30ml oral suspension PO PRN (13:30)
[2022-06-28] MEDS ORDERED: magnesium 4gm in 100ml NS 100 ML IV PRN (13:30)
[2022-06-28] MEDS ORDERED: diphenhydrAMINE 25mg capsule PO PRN (13:30)
[2022-06-28] MEDS ORDERED: magnesium hydroxide 30ml (MOM) UD suspension PO PRN (13:30)
[2022-06-28] MEDS ORDERED: ondansetron/PF 4mg/2ml inj IV PRN (13:30)
[2022-06-28] MEDS ORDERED: ondansetron 4mg rapidly disintigrating tab PO PRN (13:30)
[2022-06-28 14:08] LABS: HEMOGLOBIN A1C 5.5 % (4.5-6.2)
[2022-06-28] MEDS ORDERED: MIDAZolam 1 MG/ML 5ML VIAL ONE (14:14)
[2022-06-28] MEDS ORDERED: fentaNYL/PF 50MCG/1 ML 2ML syringe ONE (14:14)
[2022-06-28] MEDS ORDERED: CETI-90 PO (14:22)
[2022-06-28] MEDS ORDERED: METH54TA12 PO (14:22)
--- NOTE | 2022-06-28 14:25 | NUR ---
Pt left ED for GI lab, GI RN will hang RENALDO and rachana
--- NOTE | 2022-06-28 15:18 | NUR ---
Patient in room ED 6. I have received report from Siri SEVILLA RN and had the opportunity to ask questions and assume patient care.
--- NOTE | 2022-06-28 15:18 | NUR ---
Provided shift report to accepting staff FRANCOISE Flynn. Pt will be going there from GI lab afterwards
[2022-06-28] MEDS ORDERED: LEVO75TA7 PO (15:59)
[2022-06-28] MEDS ORDERED: CHOL400T PO (16:01)
[2022-06-28] MEDS ORDERED: POLY510P31 PO (16:05)
[2022-06-28] MEDS ORDERED: PSYL283P10 PO (16:07)
[2022-06-28] MEDS ORDERED: MAGN400O6 PO (16:08)
[2022-06-28] MEDS ORDERED: MAGN296S68 PO (16:09)
[2022-06-28] MEDS ORDERED: LOPE2TAB23 PO (16:12)
[2022-06-28] MEDS ORDERED: ACET325T58 PO (16:13)
[2022-06-28] MEDS: lactulose 20gm/30ml cup PO SCH ×2 (17:50→20:00)
--- NOTE | 2022-06-28 18:59 | NUR ---
Problems reprioritized. Patient report given, questions answered & plan of care reviewed with Geovanna OWUSU, patient stable at transfer of care.
[2022-06-28] MEDS: K and/or MAG REPLACEMENT MC SCH (20:00)
[2022-06-28] MEDS: heparin, porcine 5000 units/ml vial SQ SCH (20:00)
[2022-06-28] MEDS: docusate sod 100mg capsule PO SCH (20:00)
[2022-06-29] VITALS (13 sets, daily range): BP systolic 118–133; BP diastolic 69–83
[2022-06-29] MEDS: lactulose 20gm/30ml cup PO SCH ×5 (04:48→16:00)
[2022-06-29] MEDS: normal saline 1000ml 1,000 ML IV SCH ×3 (04:53→21:30)
--- NOTE | 2022-06-29 06:10 | NUR ---
Patient in room PCU 3017. I have received report from Geovanna OWUSU and had the opportunity to ask questions and assume patient care.
[2022-06-29 07:19] LABS: BASOPHILS % (AUTO) 0.1 % (0-1); EOSINOPHILS % (AUTO) 0.3 % (0-6); HEMATOCRIT 44.1 % (42.0-52.0); HEMOGLOBIN 14.7 g/dl (14.0-17.9); LYMPHOCYTES # (AUTO) 0.6 X10'3 (1.1-4.8); MEAN CORPUSCULAR HEMOGLOBIN 31.7 PG (27.0-31.0); MEAN CORPUSCULAR HGB CONC 33.2 g/dL (33.0-36.5); MEAN CORPUSCULAR VOLUME 95.3 FL (78-98); MEAN PLATELET VOLUME 10.4 FL (7.4-10.4); MONOCYTES # (AUTO) 1.4 X10'3 (0-0.9); NEUTROPHILS # (AUTO) 8.7 X10'3 (1.8-7.7); NEUTROPHILS % (AUTO) 80.6 % (42-75); PLATELET COUNT 203 X10'3 (140-440); RED BLOOD COUNT 4.63 X10'6 (4.70-6.10); RED CELL DISTRIBUTION WIDTH 14.7 % (11.5-14.5); WHITE BLOOD COUNT 10.7 X10'3 (4.5-11.0)
[2022-06-29 07:37] LABS: ALANINE AMINOTRANSFERASE 9 U/L (12-78); ALBUMIN 2.2 G/DL (3.4-5.0); ALBUMIN/GLOBULIN RATIO 0.7 (1.1-1.5); ALKALINE PHOSPHATASE 91 IU/L (46-116); ANION GAP 9 (8-16); ASPARTATE AMINO TRANSFERASE 12 U/L (10-37); BILIRUBIN,TOTAL 0.5 MG/DL (0.1-1.0); BLOOD UREA NITROGEN 35 MG/DL (7-18); BUN/CREATININE RATIO 30.7 (5.4-32.0); CALCIUM 7.8 MG/DL (8.5-10.1); CHLORIDE 112 MMOL/L (99-107); CHOL/HDL RATIO 2.8 (0.00-4.99); CHOLESTEROL 72 MG/DL (0-200); CREATININE 1.14 MG/DL (0.60-1.10); GLUCOSE 90 MG/DL (70-104); HDL CHOLESTEROL 26 MG/DL (35-60); LDL CHOLESTEROL 26 MG/DL (50-100); MAGNESIUM 3.2 MG/DL (1.5-2.4); PHOSPHORUS 2.5 MG/DL (2.3-4.5); POTASSIUM 3.8 MMOL/L (3.5-5.1); SODIUM 147 MMOL/L (135-145); TOTAL CARBON DIOXIDE 26.2 MMOL/L (24-32); TOTAL PROTEIN 5.5 G/DL (6.4-8.2); TRIGLYCERIDES 84 MG/DL (20-135); eGFR 71 ML/MIN
[2022-06-29] MEDS: K and/or MAG REPLACEMENT MC SCH ×2 (08:00→20:00)
[2022-06-29] MEDS ORDERED: magnesium hydroxide 30ml (MOM) UD suspension PO PRN (08:40)
[2022-06-29] MEDS ORDERED: loperamide 2mg capsule PO PRN (08:40)
[2022-06-29] MEDS ORDERED: magnesium citrate 296ml oral solution PO PRN (08:40)
[2022-06-29] MEDS ORDERED: METHYLPHENIDATE HCL 54 MG PO PRN (08:40)
[2022-06-29] MEDS ORDERED: cloNIDine 0.1 mg tablet PO PRN (08:40)
[2022-06-29] MEDS: docusate sod 100mg capsule PO SCH (08:46)
[2022-06-29] MEDS: heparin, porcine 5000 units/ml vial SQ SCH ×2 (08:49→20:00)
[2022-06-29] MEDS: CefTRIAXone/D5W-Rocephin 1gm 50 ML IV SCH (09:00)
[2022-06-29] MEDS: multivitamins, therapeutics tablet PO SCH (09:05)
[2022-06-29] MEDS ORDERED: morphine 2 MG/ML inj. syringe IV PRN ×2 (10:25→19:40)
[2022-06-29] MEDS: morphine 2 MG/ML inj. syringe IV PRN (10:36)
[2022-06-29] MEDS: metroNIDAZOLE-Flagyl 500mg/NS 100 ML IV SCH ×3 (10:55→16:00)
[2022-06-29 11:01] LABS: C DIFF SPECIMEN=DIARRHEA? ACCEPTABLE; C DIFFICILE TOXINS A&B NEGATIVE (Neg)
[2022-06-29] MEDS ORDERED: IOHEXOL 12MG/ML oral solution 500 ML BOTTLE PO ONE (12:00)
--- NOTE | 2022-06-29 15:24 | NUR ---
Paged Dr. West regarding CT results are available for viewing. 3017B, Nico Whitten. Pts CT results are available. [id number].
--- NOTE | 2022-06-29 18:15 | NUR ---
Patient in room PCU 3017. I have received report from Rina OWUSU and had the opportunity to ask questions and assume patient care.
--- NOTE | 2022-06-29 19:08 | NUR ---
Problems reprioritized. Patient report given, questions answered & plan of care reviewed with Genesis OWUSU, patient stable at transfer of care.
[2022-06-29] MEDS ORDERED: meperidine/PF 25mg/ml syringe IV PRN ×3 (19:40)
[2022-06-29] MEDS ORDERED: proCHLORperazine 10 MG/2 ml inj IV PRN (19:40)
[2022-06-29] MEDS ORDERED: ringers solution, lacted 1,000 ML IV SCH (19:40)
[2022-06-29] MEDS ORDERED: morphine 4 MG/ML inj SYRINge IV PRN (19:40)
[2022-06-29] MEDS ORDERED: ondansetron/PF 4mg/2ml inj IV PRN ×2 (19:40→22:25)
[2022-06-29] MEDS ORDERED: polyethylene glycol 3350 17gm powd pack PO SCH (20:00)
[2022-06-29] MEDS: benztropine 1mg tablet PO SCH (20:00)
[2022-06-29] MEDS: aripiprazole 5mg tablet PO SCH (20:00)
[2022-06-29] MEDS ORDERED: sevoflurane 250ml liquid IH ONE (20:04)
[2022-06-29] MEDS ORDERED: midazolam 1 mg/ML 2ml injection ONE (20:09)
[2022-06-29] MEDS ORDERED: propofol inj 20 ML IV ONE (20:11)
[2022-06-29] MEDS ORDERED: fentaNYL /PF 50mcg/ml 5ml ampule ONE (20:11)
[2022-06-29] MEDS ORDERED: metoprolol succinate 25mg (24-HOUR) SR. Tablet PO SCH (21:00)
[2022-06-29] MEDS: psyllium seed 3.4 gm packet PO SCH (21:00)
[2022-06-29] MEDS ORDERED: IOHEXOL 12MG/ML oral solution 500 ML BOTTLE PO SCH (21:00)
[2022-06-29] MEDS ORDERED: ceFOXitin 1000 MG inj ONE ×2 (21:21)
[2022-06-29] MEDS ORDERED: rocuronium 10mg/ml inj IV ONE (21:21)
[2022-06-29] MEDS ORDERED: BUPIVAcaine/PF 2.5 mg/ml (0.25%) 30ml vial ONE (21:52)
[2022-06-29] MEDS ORDERED: BUPIVACAINE liposomal/PF 13.3 MG/ML vial IM ONE (21:53)
[2022-06-29] MEDS ORDERED: naloxone 0.4 mg/ml inj IV PRN (22:25)
[2022-06-29] MEDS ORDERED: sugammadex 200mg/2ml injection IV ONE (22:30)
[2022-06-29] MEDS ORDERED: fentaNYL/PF 50MCG/1 ML 2ML syringe ONE (22:35)
--- NOTE | 2022-06-29 22:44 | NUR ---
Received from OR via [facility] , accompanied by Anesthesiologist DR BANDA and report given by Anesthesiolgist. PT PRESENTS WITH 18G LEFT WRIST PLACED IN THE OR, BECERRIL CATHETER, AB LUZ ELENA WITH 1/4 PACKING AND ABD DRESSING WITH COLOSTOMY BAG, URINE OUTPUT 200MLS IN BECERRIL CAHTETER, LR RUNNING @100MLS/HR. VSS. Addendum: 06/29/22 at 2313 by Emily Perry RN, RN Amended: Links added.
--- NOTE | 2022-06-29 23:44 | NUR ---
Patient in room PCU 3017. I have received report from acid recovery operator Emily and had the opportunity to ask questions and assume patient care after procedure.
--- NOTE | 2022-06-29 23:44 | NUR ---
Report called to receiving nurse INOCENTE OWUSU. Transferred via HOSPITAL BED BACK TO ROOM 3017B. PT HOOKES UP TO VITALS MONITOR, BED IN LOW LOCKED POSTION. Belongings WERE LEFT IN PT ROOM 3017B. SPecial Issues communicated to receiving nurse. Addendum: 06/29/22 at 2349 by Emily Perry RN RN Amended: Links added.
[2022-06-30] VITALS (13 sets, daily range): BP systolic 71–142; BP diastolic 63–83
[2022-06-30] MEDS: metroNIDAZOLE-Flagyl 500mg/NS 100 ML IV SCH ×4 (00:17→23:49)
[2022-06-30] MEDS: morphine 2 MG/ML inj. syringe IV PRN ×5 (01:08→22:56)
[2022-06-30] MEDS: normal saline 1000ml 1,000 ML IV SCH ×3 (03:06→22:26)
--- NOTE | 2022-06-30 06:40 | NUR ---
Patient in room PCU 3017. I have received report from FRANCOISE Hurtado and had the opportunity to ask questions and assume patient care.
--- NOTE | 2022-06-30 06:43 | NUR ---
Problems reprioritized. Patient report given, questions answered & plan of care reviewed with Shanae RN.
[2022-06-30 07:09] LABS: BASOPHILS % (AUTO) 0.1 % (0-1); EOSINOPHILS % (AUTO) 0 % (0-6); HEMATOCRIT 37.9 % (42.0-52.0); HEMOGLOBIN 12.6 g/dl (14.0-17.9); LYMPHOCYTES # (AUTO) 0.6 X10'3 (1.1-4.8); LYMPHOCYTES % (AUTO) 7.5 % (21-51); MEAN CORPUSCULAR HGB CONC 33.2 g/dL (33.0-36.5); MEAN CORPUSCULAR VOLUME 96.5 FL (78-98); MEAN PLATELET VOLUME 10.1 FL (7.4-10.4); MONOCYTES # (AUTO) 0.8 X10'3 (0-0.9); MONOCYTES % (AUTO) 10.7 % (2-12); NEUTROPHILS % (AUTO) 81.7 % (42-75); PLATELET COUNT 169 X10'3 (140-440); RED BLOOD COUNT 3.93 X10'6 (4.70-6.10); WHITE BLOOD COUNT 7.4 X10'3 (4.5-11.0)
[2022-06-30 07:22] LABS: ALANINE AMINOTRANSFERASE 9 U/L (12-78); ALBUMIN 1.9 G/DL (3.4-5.0); ALBUMIN/GLOBULIN RATIO 0.6 (1.1-1.5); ALKALINE PHOSPHATASE 72 IU/L (46-116); ANION GAP 11 (8-16); ASPARTATE AMINO TRANSFERASE 15 U/L (10-37); BILIRUBIN,TOTAL 0.3 MG/DL (0.1-1.0); BLOOD UREA NITROGEN 15 MG/DL (7-18); BUN/CREATININE RATIO 16.5 (5.4-32.0); CALCIUM 7.7 MG/DL (8.5-10.1); CHLORIDE 115 MMOL/L (99-107); CREATININE 0.91 MG/DL (0.60-1.10); GLUCOSE 90 MG/DL (70-104); MAGNESIUM 2.5 MG/DL (1.5-2.4); PHOSPHORUS 2.7 MG/DL (2.3-4.5); POTASSIUM 3.7 MMOL/L (3.5-5.1); SODIUM 149 MMOL/L (135-145); TOTAL CARBON DIOXIDE 23.2 MMOL/L (24-32); TOTAL PROTEIN 4.9 G/DL (6.4-8.2); eGFR > 90 ML/MIN
[2022-06-30] MEDS: K and/or MAG REPLACEMENT MC SCH ×2 (08:00→20:00)
--- NOTE | 2022-06-30 09:00 | NUR ---
Noted pt with a low Charles of 12. Per physical assessment pt with no edema and per RN/OIL BAY TECHNICIAN skin assessment skin is intact with red and excoriated sacrum. No significant wounds identified at this time. Pt currently NPO. Will continue to follow. Addendum: 06/30/22 at [address] Amended: Links added.
[2022-06-30] MEDS: multivitamins, therapeutics tablet PO SCH (09:17)
[2022-06-30] MEDS: cetirizine 10mg tablet PO SCH (09:17)
[2022-06-30] MEDS: aripiprazole 5mg tablet PO SCH ×2 (09:17→22:08)
[2022-06-30] MEDS: benztropine 1mg tablet PO SCH ×2 (09:17→22:08)
[2022-06-30] MEDS: levoTHYROXINE 75mcg tablet PO SCH (09:17)
[2022-06-30] MEDS: pantoprazole 40mg Tablet.DR PO SCH (09:17)
[2022-06-30] MEDS: CefTRIAXone/D5W-Rocephin 1gm 50 ML IV SCH (09:18)
[2022-06-30] MEDS: heparin, porcine 5000 units/ml vial SQ SCH ×2 (09:19→22:09)
[2022-06-30] MEDS: metoprolol succinate 25mg (24-HOUR) SR. Tablet PO SCH (09:20)
--- NOTE | 2022-06-30 18:40 | NUR ---
Problems reprioritized. Patient report given, questions answered & plan of care reviewed with XAVIER Hurtado.
[2022-06-30] MEDS: psyllium seed 3.4 gm packet PO SCH (22:50)
[2022-07-01 02:00] VITALS: BP 120/70
--- NOTE | 2022-07-01 05:33 | NUR ---
REVIEWED TABLET MAKING MACHINE OPERATOR HELPER ASSESSMENT AND IN AGREEMENT
[2022-07-01 06:00] VITALS: BP 115/99
--- NOTE | 2022-07-01 06:14 | NUR ---
Problems reprioritized. Patient report given, questions answered & plan of care reviewed with Rina OWUSU.
--- NOTE | 2022-07-01 06:25 | NUR ---
Patient in room PCU 3017. I have received report from Genesis OWUSU and had the opportunity to ask questions and assume patient care.
[2022-07-01 07:09] LABS: BASOPHILS % (AUTO) 0.4 % (0-1); EOSINOPHILS # (AUTO) 0.1 X10'3 (0-0.9); EOSINOPHILS % (AUTO) 1.2 % (0-6); HEMATOCRIT 38.8 % (42.0-52.0); LYMPHOCYTES # (AUTO) 0.7 X10'3 (1.1-4.8); LYMPHOCYTES % (AUTO) 9.5 % (21-51); MEAN CORPUSCULAR HEMOGLOBIN 32.4 PG (27.0-31.0); MEAN CORPUSCULAR HGB CONC 33.6 g/dL (33.0-36.5); MEAN CORPUSCULAR VOLUME 96.3 FL (78-98); MEAN PLATELET VOLUME 10.2 FL (7.4-10.4); MONOCYTES % (AUTO) 13.1 % (2-12); NEUTROPHILS # (AUTO) 5.7 X10'3 (1.8-7.7); NEUTROPHILS % (AUTO) 75.8 % (42-75); PLATELET COUNT 190 X10'3 (140-440); RED BLOOD COUNT 4.03 X10'6 (4.70-6.10); RED CELL DISTRIBUTION WIDTH 15.1 % (11.5-14.5); WHITE BLOOD COUNT 7.5 X10'3 (4.5-11.0)
[2022-07-01 07:31] LABS: ALANINE AMINOTRANSFERASE 15 U/L (12-78); ALBUMIN/GLOBULIN RATIO 0.6 (1.1-1.5); ALKALINE PHOSPHATASE 76 IU/L (46-116); ANION GAP 13 (8-16); ASPARTATE AMINO TRANSFERASE 28 U/L (10-37); BILIRUBIN,TOTAL 0.3 MG/DL (0.1-1.0); BLOOD UREA NITROGEN 9 MG/DL (7-18); BUN/CREATININE RATIO 9.9 (5.4-32.0); CALCIUM 7.8 MG/DL (8.5-10.1); CHLORIDE 112 MMOL/L (99-107); CREATININE 0.91 MG/DL (0.60-1.10); GLUCOSE 60 MG/DL (70-104); MAGNESIUM 2.2 MG/DL (1.5-2.4); PHOSPHORUS 1.8 MG/DL (2.3-4.5); POTASSIUM 3.4 MMOL/L (3.5-5.1); SODIUM 148 MMOL/L (135-145); TOTAL PROTEIN 5.6 G/DL (6.4-8.2); eGFR > 90 ML/MIN
[2022-07-01 08:00] LABS: ANISOCYTOSIS 1+; LARGE PLATELETS FEW; PLATELET ESTIMATE NORMAL; TOTAL CELLS COUNTED 100
[2022-07-01] MEDS: K and/or MAG REPLACEMENT MC SCH ×2 (08:00→20:00)
[2022-07-01] MEDS: heparin, porcine 5000 units/ml vial SQ SCH ×2 (08:00→20:00)
[2022-07-01] MEDS: CefTRIAXone/D5W-Rocephin 1gm 50 ML IV SCH (10:50)
[2022-07-01] MEDS: cetirizine 10mg tablet PO SCH (10:52)
[2022-07-01] MEDS: aripiprazole 5mg tablet PO SCH ×2 (10:52→20:00)
[2022-07-01] MEDS: pantoprazole 40mg Tablet.DR PO SCH (10:52)
[2022-07-01] MEDS: metoprolol succinate 25mg (24-HOUR) SR. Tablet PO SCH (10:52)
[2022-07-01] MEDS: benztropine 1mg tablet PO SCH ×2 (10:52→20:00)
[2022-07-01] MEDS: multivitamins, therapeutics tablet PO SCH (10:52)
[2022-07-01] MEDS: levoTHYROXINE 75mcg tablet PO SCH (10:52)
[2022-07-01 11:00] VITALS: BP 123/76
[2022-07-01] MEDS ORDERED: magnesium hydroxide 30ml (MOM) UD suspension PO ONE (11:20)
[2022-07-01] MEDS: metroNIDAZOLE-Flagyl 500mg/NS 100 ML IV SCH ×2 (13:12→16:00)
[2022-07-01] MEDS: potassium CL 20mEq in D5-1/2NS 1,000 ML IV SCH (14:14)
[2022-07-01 15:00] VITALS: BP 115/69
--- NOTE | 2022-07-01 18:15 | NUR ---
Patient in room PCU 3017. I have received report from Rina OWUSU and had the opportunity to ask questions and assume patient care.
--- NOTE | 2022-07-01 18:15 | NUR ---
Patient in room PCU 3017. I have received report from Rina OWUSU and had the opportunity to ask questions and assume patient care.
--- NOTE | 2022-07-01 19:10 | NUR ---
Problems reprioritized. Patient report given, questions answered & plan of care reviewed with Genesis PARK, patient stable at transfer of care.
[2022-07-01] MEDS: psyllium seed 3.4 gm packet PO SCH (21:00)
[2022-07-01 22:00] VITALS: BP 116/64
[2022-07-02] MEDS ORDERED: potassium CL 10mEq/100ml bag 100 ML IV PRN (00:05)
[2022-07-02] MEDS ORDERED: POTASSIUM BICARB 20meq eff tab 20 MEQ TABLET.EFF PO PRN (00:05)
[2022-07-02] MEDS ORDERED: magnesium Cl slow-release 64mg tablet PO PRN (00:05)
[2022-07-02] MEDS ORDERED: magnesium 2GM in 50ml NS 50 ML IV PRN (00:05)
[2022-07-02] MEDS ORDERED: magnesium 4gm in 100ml NS 100 ML IV PRN (00:05)
[2022-07-02] MEDS: metroNIDAZOLE-Flagyl 500mg/NS 100 ML IV SCH ×3 (00:27→15:55)
[2022-07-02] MEDS: POTASSIUM BICARB 20meq eff tab 20 MEQ TABLET.EFF PO PRN (00:27)
[2022-07-02 02:00] VITALS: BP 120/74
--- NOTE | 2022-07-02 05:57 | NUR ---
AGREE WITH STARS COORDINATOR PHYSICAL ASSESSMENT CHARTED
[2022-07-02 06:00] VITALS: BP 120/74
--- NOTE | 2022-07-02 06:24 | NUR ---
Problems reprioritized. Patient report given, questions answered & plan of care reviewed with Dai OWUSU.
--- NOTE | 2022-07-02 06:25 | NUR ---
Patient in room PCU 3017. I have received report from lindsey jeffrey and had the opportunity to ask questions and assume patient care.
[2022-07-02 07:24] LABS: BASOPHILS % (AUTO) 0.5 % (0-1); EOSINOPHILS # (AUTO) 0.2 X10'3 (0-0.9); EOSINOPHILS % (AUTO) 2.2 % (0-6); HEMATOCRIT 36.4 % (42.0-52.0); HEMOGLOBIN 12.3 g/dl (14.0-17.9); LYMPHOCYTES # (AUTO) 0.8 X10'3 (1.1-4.8); LYMPHOCYTES % (AUTO) 10.1 % (21-51); MEAN CORPUSCULAR HEMOGLOBIN 32.2 PG (27.0-31.0); MEAN CORPUSCULAR HGB CONC 33.7 g/dL (33.0-36.5); MEAN CORPUSCULAR VOLUME 95.5 FL (78-98); MONOCYTES % (AUTO) 12.7 % (2-12); NEUTROPHILS # (AUTO) 5.7 X10'3 (1.8-7.7); NEUTROPHILS % (AUTO) 74.5 % (42-75); PLATELET COUNT 196 X10'3 (140-440); RED BLOOD COUNT 3.81 X10'6 (4.70-6.10); RED CELL DISTRIBUTION WIDTH 14.3 % (11.5-14.5); WHITE BLOOD COUNT 7.7 X10'3 (4.5-11.0)
[2022-07-02 07:25] LABS: ALANINE AMINOTRANSFERASE 16 U/L (12-78); ALBUMIN 1.7 G/DL (3.4-5.0); ALBUMIN/GLOBULIN RATIO 0.5 (1.1-1.5); ALKALINE PHOSPHATASE 63 IU/L (46-116); ANION GAP 7 (8-16); ASPARTATE AMINO TRANSFERASE 22 U/L (10-37); BILIRUBIN,TOTAL 0.3 MG/DL (0.1-1.0); BLOOD UREA NITROGEN 6 MG/DL (7-18); BUN/CREATININE RATIO 8.2 (5.4-32.0); CALCIUM 7.7 MG/DL (8.5-10.1); CHLORIDE 110 MMOL/L (99-107); CREATININE 0.73 MG/DL (0.60-1.10); GLUCOSE 121 MG/DL (70-104); MAGNESIUM 2.2 MG/DL (1.5-2.4); PHOSPHORUS 1.5 MG/DL (2.3-4.5); POTASSIUM 3.7 MMOL/L (3.5-5.1); SODIUM 146 MMOL/L (135-145); TOTAL PROTEIN 4.8 G/DL (6.4-8.2); eGFR > 90 ML/MIN
[2022-07-02] MEDS: K and/or MAG REPLACEMENT MC SCH ×4 (08:00→20:00)
[2022-07-02 08:13] LABS: PLATELET ESTIMATE NORMAL; TOTAL CELLS COUNTED 100
[2022-07-02] MEDS: pantoprazole 40mg Tablet.DR PO SCH (09:33)
[2022-07-02] MEDS: heparin, porcine 5000 units/ml vial SQ SCH ×2 (09:34→20:19)
[2022-07-02] MEDS: levoTHYROXINE 75mcg tablet PO SCH (09:34)
[2022-07-02] MEDS: metoprolol succinate 25mg (24-HOUR) SR. Tablet PO SCH (09:34)
[2022-07-02] MEDS: multivitamins, therapeutics tablet PO SCH (09:34)
[2022-07-02] MEDS: benztropine 1mg tablet PO SCH ×2 (09:34→20:18)
[2022-07-02] MEDS: aripiprazole 5mg tablet PO SCH ×2 (09:34→20:18)
[2022-07-02] MEDS: cetirizine 10mg tablet PO SCH (09:34)
[2022-07-02 11:00] VITALS: BP 105/62
[2022-07-02] MEDS: CefTRIAXone/D5W-Rocephin 1gm 50 ML IV SCH (12:25)
[2022-07-02] MEDS: potassium CL 20mEq in D5-1/2NS 1,000 ML IV SCH (15:55)
--- NOTE | 2022-07-02 18:47 | NUR ---
Problems reprioritized. Patient report given, questions answered & plan of care reviewed with SAMUEL OWUSU.
[2022-07-02 18:50] VITALS: BP 101/65
[2022-07-02] MEDS: psyllium seed 3.4 gm packet PO SCH (20:33)
[2022-07-02 22:45] VITALS: BP 103/60
[2022-07-03] MEDS: metroNIDAZOLE 500mg tablet PO SCH ×3 (00:06→15:50)
[2022-07-03 02:00] VITALS: BP 96/70
[2022-07-03 06:00] VITALS: BP 96/70
[2022-07-03 06:12] LABS: BASOPHILS % (AUTO) 0.3 % (0-1); EOSINOPHILS # (AUTO) 0.1 X10'3 (0-0.9); EOSINOPHILS % (AUTO) 1.9 % (0-6); HEMATOCRIT 37.9 % (42.0-52.0); HEMOGLOBIN 12.7 g/dl (14.0-17.9); LYMPHOCYTES # (AUTO) 0.7 X10'3 (1.1-4.8); LYMPHOCYTES % (AUTO) 11.2 % (21-51); MEAN CORPUSCULAR HEMOGLOBIN 32.1 PG (27.0-31.0); MEAN CORPUSCULAR HGB CONC 33.6 g/dL (33.0-36.5); MEAN CORPUSCULAR VOLUME 95.6 FL (78-98); MEAN PLATELET VOLUME 9.5 FL (7.4-10.4); MONOCYTES # (AUTO) 0.6 X10'3 (0-0.9); MONOCYTES % (AUTO) 9.2 % (2-12); NEUTROPHILS # (AUTO) 5.2 X10'3 (1.8-7.7); NEUTROPHILS % (AUTO) 77.4 % (42-75); PLATELET COUNT 199 X10'3 (140-440); RED BLOOD COUNT 3.97 X10'6 (4.70-6.10); RED CELL DISTRIBUTION WIDTH 14.3 % (11.5-14.5); WHITE BLOOD COUNT 6.7 X10'3 (4.5-11.0)
[2022-07-03 06:29] LABS: ALANINE AMINOTRANSFERASE 18 U/L (12-78); ALBUMIN 1.7 G/DL (3.4-5.0); ALBUMIN/GLOBULIN RATIO 0.5 (1.1-1.5); ALKALINE PHOSPHATASE 65 IU/L (46-116); ANION GAP 3 (8-16); ASPARTATE AMINO TRANSFERASE 23 U/L (10-37); BILIRUBIN,TOTAL 0.2 MG/DL (0.1-1.0); BLOOD UREA NITROGEN 7 MG/DL (7-18); CALCIUM 7.4 MG/DL (8.5-10.1); CHLORIDE 112 MMOL/L (99-107); CREATININE 0.88 MG/DL (0.60-1.10); GLUCOSE 191 MG/DL (70-104); MAGNESIUM 2.1 MG/DL (1.5-2.4); PHOSPHORUS 1.6 MG/DL (2.3-4.5); POTASSIUM 3.2 MMOL/L (3.5-5.1); SODIUM 146 MMOL/L (135-145); TOTAL CARBON DIOXIDE 30.8 MMOL/L (24-32); eGFR > 90 ML/MIN
--- NOTE | 2022-07-03 07:00 | NUR ---
Problems reprioritized. Patient report given, questions answered & plan of care reviewed with HIPOLITO. Addendum: 07/03/22 at 0701 by Dwayne Campoverde RN Amended: Links added.
[2022-07-03] MEDS: K and/or MAG REPLACEMENT MC SCH ×4 (08:00→20:00)
[2022-07-03] MEDS: metoprolol succinate 25mg (24-HOUR) SR. Tablet PO SCH (08:00)
[2022-07-03] MEDS: CefTRIAXone/D5W-Rocephin 1gm 50 ML IV SCH (08:49)
[2022-07-03] MEDS: aripiprazole 5mg tablet PO SCH ×2 (08:50→20:39)
[2022-07-03] MEDS: heparin, porcine 5000 units/ml vial SQ SCH ×2 (08:51→20:39)
[2022-07-03] MEDS: levoTHYROXINE 75mcg tablet PO SCH (08:51)
[2022-07-03] MEDS: cetirizine 10mg tablet PO SCH (08:51)
[2022-07-03] MEDS: benztropine 1mg tablet PO SCH ×2 (08:51→20:39)
[2022-07-03] MEDS: multivitamins, therapeutics tablet PO SCH (08:51)
[2022-07-03] MEDS: POTASSIUM BICARB 20meq eff tab 20 MEQ TABLET.EFF PO PRN ×3 (08:52→20:40)
[2022-07-03] MEDS: pantoprazole 40mg Tablet.DR PO SCH (08:53)
--- NOTE | 2022-07-03 10:35 | NUR ---
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 Currently on Regular diet since yesterday w/ 100% intake of first regular meal. TC to RN recommendation for Low fiber diet given recent surgery. Will provide double protein BID to assist w/ meeting increased needs. Will consider ONS if PO trends do not continue. TC to [facility]'s [facility] manager Yao and provided her w/ verbal colostomy diet education and informed her that the written ed w/ RD contact info will be placed in pt chart. Pt noted w/ 700ml ostomy output this morning. Will continue to monitor. Recs: 1. Change to Low fiber diet 2. Double protein BIDBD 3. Bowel care per MD 4. Weekly wts Addendum: 07/03/22 at [address] Amended: Links added.
[2022-07-03 11:00] VITALS: BP 115/66
[2022-07-03 15:00] VITALS: BP 110/72
--- NOTE | 2022-07-03 16:24 | NUR ---
[facility] assessment for ostomy pouch change and stoma assessment. Pt smiling and agrees to care. Did require assistance from aide to distract him while care was provided. Noted there was a leak in the device, noted to have thick liquid effluent in pouch. Sherry stomal skin is intact and stoma remains edematous. Eugene two piece placed open to 57mm w/ skin prep. He tolerated well. [facility] and staff will provide care for ostomy. Recommend moldable product while stoma is still edematous and skin prep. Addendum: 07/03/22 at 1631 by Lilian Hoffman RN Amended: Links added.
[2022-07-03 18:40] VITALS: BP 113/67
[2022-07-03] MEDS: psyllium seed 3.4 gm packet PO SCH (20:39)
[2022-07-03 22:00] VITALS: BP 93/75
[2022-07-04 02:00] VITALS: BP 109/72
[2022-07-04 06:00] VITALS: BP 120/66
--- NOTE | 2022-07-04 06:28 | NUR ---
Problems reprioritized. Patient report given, questions answered & plan of care reviewed with HIPOLITO. Addendum: 07/04/22 at 0630 by Dwayne Campoverde RN Amended: Links added.
[2022-07-04] MEDS: K and/or MAG REPLACEMENT MC SCH ×3 (08:00→19:56)
[2022-07-04] MEDS: heparin, porcine 5000 units/ml vial SQ SCH ×2 (09:01→20:03)
[2022-07-04] MEDS: cetirizine 10mg tablet PO SCH (09:01)
[2022-07-04] MEDS: CefTRIAXone/D5W-Rocephin 1gm 50 ML IV SCH (09:01)
[2022-07-04] MEDS: aripiprazole 5mg tablet PO SCH ×2 (09:01→20:02)
[2022-07-04] MEDS: multivitamins, therapeutics tablet PO SCH (09:02)
[2022-07-04] MEDS: metoprolol succinate 25mg (24-HOUR) SR. Tablet PO SCH (09:02)
[2022-07-04] MEDS: metroNIDAZOLE 500mg tablet PO SCH ×3 (09:02→17:29)
[2022-07-04] MEDS: benztropine 1mg tablet PO SCH ×2 (09:02→20:02)
[2022-07-04] MEDS: levoTHYROXINE 75mcg tablet PO SCH (09:02)
[2022-07-04] MEDS: pantoprazole 40mg Tablet.DR PO SCH (09:04)
[2022-07-04 11:30] VITALS: BP 98/62
[2022-07-04 18:04] VITALS: BP 108/72
[2022-07-04 18:40] VITALS: BP 113/80
[2022-07-04] MEDS: psyllium seed 3.4 gm packet PO SCH (22:00)
[2022-07-05] MEDS: metroNIDAZOLE 500mg tablet PO SCH ×4 (01:10→23:30)
[2022-07-05 06:00] VITALS: BP 99/50
--- NOTE | 2022-07-05 06:46 | NUR ---
Problems reprioritized. Patient report given, questions answered & plan of care reviewed with CEASAR. Addendum: 07/05/22 at 0647 by Dwayne Campoverde RN Amended: Links added.
[2022-07-05 07:15] LABS: POTASSIUM 3.8 MMOL/L (3.5-5.1)
[2022-07-05] MEDS: K and/or MAG REPLACEMENT MC SCH ×2 (08:00→20:00)
[2022-07-05] MEDS: CefTRIAXone/D5W-Rocephin 1gm 50 ML IV SCH (08:51)
[2022-07-05] MEDS: multivitamins, therapeutics tablet PO SCH (08:51)
[2022-07-05] MEDS: metoprolol succinate 25mg (24-HOUR) SR. Tablet PO SCH (08:52)
[2022-07-05] MEDS: aripiprazole 5mg tablet PO SCH (08:52)
[2022-07-05] MEDS: cetirizine 10mg tablet PO SCH (08:52)
[2022-07-05] MEDS: heparin, porcine 5000 units/ml vial SQ SCH (08:52)
[2022-07-05] MEDS: levoTHYROXINE 75mcg tablet PO SCH (08:52)
[2022-07-05] MEDS: benztropine 1mg tablet PO SCH (08:52)
[2022-07-05] MEDS: pantoprazole 40mg Tablet.DR PO SCH (08:54)
[2022-07-05 09:00] LABS: ANION GAP 6 (8-16); BLOOD UREA NITROGEN 15 MG/DL (7-18); BUN/CREATININE RATIO 18.1 (5.4-32.0); CALCIUM 8.3 MG/DL (8.5-10.1); CHLORIDE 106 MMOL/L (99-107); CREATININE 0.83 MG/DL (0.60-1.10); GLUCOSE 120 MG/DL (70-104); MAGNESIUM 1.6 MG/DL (1.5-2.4); SODIUM 142 MMOL/L (135-145); eGFR > 90 ML/MIN
[2022-07-05 09:02] LABS: BASOPHILS % (AUTO) 0.6 % (0-1); EOSINOPHILS # (AUTO) 0.2 X10'3 (0-0.9); EOSINOPHILS % (AUTO) 2.4 % (0-6); HEMATOCRIT 34.9 % (42.0-52.0); HEMOGLOBIN 11.6 g/dl (14.0-17.9); LYMPHOCYTES % (AUTO) 13.1 % (21-51); MEAN CORPUSCULAR HEMOGLOBIN 31.7 PG (27.0-31.0); MEAN CORPUSCULAR HGB CONC 33.2 g/dL (33.0-36.5); MEAN CORPUSCULAR VOLUME 95.4 FL (78-98); MEAN PLATELET VOLUME 9.8 FL (7.4-10.4); MONOCYTES # (AUTO) 0.5 X10'3 (0-0.9); MONOCYTES % (AUTO) 6.8 % (2-12); NEUTROPHILS # (AUTO) 5.7 X10'3 (1.8-7.7); NEUTROPHILS % (AUTO) 77.1 % (42-75); PLATELET COUNT 263 X10'3 (140-440); RED BLOOD COUNT 3.66 X10'6 (4.70-6.10); RED CELL DISTRIBUTION WIDTH 14.8 % (11.5-14.5); WHITE BLOOD COUNT 7.4 X10'3 (4.5-11.0)
[2022-07-05 10:14] LABS: PLATELET ESTIMATE NORMAL; TOTAL CELLS COUNTED 100
[2022-07-05 11:42] VITALS: BP 125/77
[2022-07-05 16:12] VITALS: BP 100/60
--- NOTE | 2022-07-05 16:19 | NUR ---
Dr. Coats in to see patient and aware of midline incision redness and assessed. No new orders.
[2022-07-05 18:00] VITALS: BP 114/69
--- NOTE | 2022-07-05 18:23 | NUR ---
Problems reprioritized. Patient report given, questions answered & plan of care reviewed with FRANCOISE Campbell.
--- NOTE | 2022-07-05 21:02 | NUR ---
Patient endorsement received from Traveler FRANCOISE Austin, patient with no respiratory distress noted. Will continue to monitor for any changes.
[2022-07-05 22:00] VITALS: BP 115/71
[2022-07-06] MEDS: benztropine 1mg tablet PO SCH ×3 (01:46→20:06)
[2022-07-06] MEDS: aripiprazole 5mg tablet PO SCH ×3 (01:46→20:06)
[2022-07-06] MEDS: heparin, porcine 5000 units/ml vial SQ SCH ×3 (01:47→20:06)
[2022-07-06] MEDS: psyllium seed 3.4 gm packet PO SCH ×2 (01:47→20:06)
--- NOTE | 2022-07-06 01:47 | NUR ---
Patient medication due given now, patient with refusal of medication earlier this evening.
[2022-07-06 02:00] VITALS: BP 122/64
[2022-07-06 06:00] VITALS: BP 102/69
[2022-07-06 06:23] LABS: BASOPHILS # (AUTO) 0.1 X10'3 (0-0.2); BASOPHILS % (AUTO) 0.6 % (0-1); EOSINOPHILS # (AUTO) 0.2 X10'3 (0-0.9); EOSINOPHILS % (AUTO) 1.9 % (0-6); HEMATOCRIT 35.1 % (42.0-52.0); HEMOGLOBIN 11.8 g/dl (14.0-17.9); LYMPHOCYTES # (AUTO) 1.3 X10'3 (1.1-4.8); LYMPHOCYTES % (AUTO) 14.7 % (21-51); MEAN CORPUSCULAR HEMOGLOBIN 32.2 PG (27.0-31.0); MEAN CORPUSCULAR HGB CONC 33.7 g/dL (33.0-36.5); MEAN CORPUSCULAR VOLUME 95.7 FL (78-98); MONOCYTES # (AUTO) 0.6 X10'3 (0-0.9); MONOCYTES % (AUTO) 6.7 % (2-12); NEUTROPHILS # (AUTO) 6.5 X10'3 (1.8-7.7); NEUTROPHILS % (AUTO) 76.1 % (42-75); PLATELET COUNT 263 X10'3 (140-440); RED BLOOD COUNT 3.66 X10'6 (4.70-6.10); RED CELL DISTRIBUTION WIDTH 14.4 % (11.5-14.5); WHITE BLOOD COUNT 8.5 X10'3 (4.5-11.0)
[2022-07-06 06:50] LABS: ALANINE AMINOTRANSFERASE 29 U/L (12-78); ALBUMIN 2.1 G/DL (3.4-5.0); ALBUMIN/GLOBULIN RATIO 0.6 (1.1-1.5); ALKALINE PHOSPHATASE 57 IU/L (46-116); ANION GAP 6 (8-16); ASPARTATE AMINO TRANSFERASE 33 U/L (10-37); BILIRUBIN,TOTAL 0.1 MG/DL (0.1-1.0); BLOOD UREA NITROGEN 17 MG/DL (7-18); CALCIUM 8.5 MG/DL (8.5-10.1); CHLORIDE 107 MMOL/L (99-107); CREATININE 0.74 MG/DL (0.60-1.10); GLUCOSE 110 MG/DL (70-104); MAGNESIUM 1.6 MG/DL (1.5-2.4); PHOSPHORUS 3.7 MG/DL (2.3-4.5); POTASSIUM 4.4 MMOL/L (3.5-5.1); SODIUM 142 MMOL/L (135-145); TOTAL CARBON DIOXIDE 29.5 MMOL/L (24-32); TOTAL PROTEIN 5.6 G/DL (6.4-8.2); eGFR > 90 ML/MIN
[2022-07-06] MEDS: K and/or MAG REPLACEMENT MC SCH ×2 (08:00→20:09)
[2022-07-06] MEDS: multivitamins, therapeutics tablet PO SCH (08:10)
[2022-07-06] MEDS: cetirizine 10mg tablet PO SCH (08:11)
[2022-07-06] MEDS: pantoprazole 40mg Tablet.DR PO SCH (08:11)
[2022-07-06] MEDS: levoTHYROXINE 75mcg tablet PO SCH (08:11)
[2022-07-06] MEDS: metoprolol succinate 25mg (24-HOUR) SR. Tablet PO SCH (08:11)
[2022-07-06 10:00] VITALS: BP 109/67
--- NOTE | 2022-07-06 10:36 | NUR ---
Reassessment: Patient's diet has appropriately been changed to low fiber and pt continues eating well, documented with mostly 100% PO intake while receiving double protein BID. D/w dietary to send double protein TID for satiety and to meet estimated protein needs. LBM 07/05 documented with 800 mL stool output per I&O. Will continue to follow and monitor need for further nutrition intervention. Recommendations: 1. Continue low fiber/soft diet 2. Double eggs WB, double meat BIDLD 3. Bowel care per physician 4. Weekly scaled weights Addendum: 07/06/22 at [address] Amended: Links added.
[2022-07-06 15:00] VITALS: BP 106/66
[2022-07-06 18:00] VITALS: BP 97/59
[2022-07-06 22:00] VITALS: BP 105/58
[2022-07-07 02:00] VITALS: BP 111/69
[2022-07-07 06:00] VITALS: BP 106/73
[2022-07-07] MEDS: K and/or MAG REPLACEMENT MC SCH ×2 (08:00→19:44)
[2022-07-07] MEDS: levoTHYROXINE 75mcg tablet PO SCH (08:15)
[2022-07-07] MEDS: multivitamins, therapeutics tablet PO SCH (08:15)
[2022-07-07] MEDS: cetirizine 10mg tablet PO SCH (08:15)
[2022-07-07] MEDS: metoprolol succinate 25mg (24-HOUR) SR. Tablet PO SCH (08:15)
[2022-07-07] MEDS: pantoprazole 40mg Tablet.DR PO SCH (08:15)
[2022-07-07] MEDS: benztropine 1mg tablet PO SCH ×2 (08:15→19:44)
[2022-07-07] MEDS: heparin, porcine 5000 units/ml vial SQ SCH ×2 (08:15→19:44)
[2022-07-07] MEDS: aripiprazole 5mg tablet PO SCH ×2 (08:15→19:44)
[2022-07-07 09:03] LABS: BASOPHILS % (AUTO) 0.4 % (0-1); EOSINOPHILS # (AUTO) 0.1 X10'3 (0-0.9); EOSINOPHILS % (AUTO) 1.1 % (0-6); HEMATOCRIT 37.6 % (42.0-52.0); HEMOGLOBIN 12.8 g/dl (14.0-17.9); LYMPHOCYTES # (AUTO) 1.3 X10'3 (1.1-4.8); LYMPHOCYTES % (AUTO) 13.5 % (21-51); MEAN CORPUSCULAR HEMOGLOBIN 32.2 PG (27.0-31.0); MEAN CORPUSCULAR VOLUME 94.5 FL (78-98); MEAN PLATELET VOLUME 9.1 FL (7.4-10.4); MONOCYTES # (AUTO) 0.5 X10'3 (0-0.9); MONOCYTES % (AUTO) 5.4 % (2-12); NEUTROPHILS # (AUTO) 7.6 X10'3 (1.8-7.7); NEUTROPHILS % (AUTO) 79.6 % (42-75); PLATELET COUNT 336 X10'3 (140-440); RED BLOOD COUNT 3.98 X10'6 (4.70-6.10); RED CELL DISTRIBUTION WIDTH 14.4 % (11.5-14.5); WHITE BLOOD COUNT 9.5 X10'3 (4.5-11.0)
[2022-07-07 09:16] LABS: ALANINE AMINOTRANSFERASE 30 U/L (12-78); ALBUMIN 2.5 G/DL (3.4-5.0); ALBUMIN/GLOBULIN RATIO 0.6 (1.1-1.5); ALKALINE PHOSPHATASE 67 IU/L (46-116); ANION GAP 5 (8-16); ASPARTATE AMINO TRANSFERASE 26 U/L (10-37); BILIRUBIN,TOTAL 0.2 MG/DL (0.1-1.0); BLOOD UREA NITROGEN 17 MG/DL (7-18); BUN/CREATININE RATIO 18.3 (5.4-32.0); CHLORIDE 103 MMOL/L (99-107); CREATININE 0.93 MG/DL (0.60-1.10); GLUCOSE 130 MG/DL (70-104); MAGNESIUM 1.4 MG/DL (1.5-2.4); PHOSPHORUS 3.3 MG/DL (2.3-4.5); POTASSIUM 4.1 MMOL/L (3.5-5.1); SODIUM 140 MMOL/L (135-145); TOTAL CARBON DIOXIDE 32.2 MMOL/L (24-32); TOTAL PROTEIN 6.7 G/DL (6.4-8.2); eGFR 90 ML/MIN
[2022-07-07 11:13] VITALS: BP 101/69
[2022-07-07 15:00] VITALS: BP 110/74
--- NOTE | 2022-07-07 16:06 | NUR ---
Arrived to room to change ostomy pouch and primary nurse had already done it as pt pulled the previous one off. He has soft brown effluent in the bag. Addendum: 07/07/22 at 1609 by Lilian Hoffman RN Amended: Links added.
--- NOTE | 2022-07-07 17:59 | NUR ---
unable to document volume of stool output, due to ostomy leaking
[2022-07-07 18:00] VITALS: BP 121/78
[2022-07-07] MEDS: psyllium seed 3.4 gm packet PO SCH (19:44)
[2022-07-07 22:00] VITALS: BP 114/65
[2022-07-08 02:00] VITALS: BP 116/72
[2022-07-08 06:00] VITALS: BP 112/91
[2022-07-08] MEDS: K and/or MAG REPLACEMENT MC SCH ×3 (08:00→20:10)
[2022-07-08] MEDS: aripiprazole 5mg tablet PO SCH ×2 (08:03→19:05)
[2022-07-08] MEDS: pantoprazole 40mg Tablet.DR PO SCH (08:04)
[2022-07-08] MEDS: heparin, porcine 5000 units/ml vial SQ SCH ×2 (08:04→19:05)
[2022-07-08] MEDS: benztropine 1mg tablet PO SCH ×2 (08:04→19:05)
[2022-07-08] MEDS: cetirizine 10mg tablet PO SCH (08:04)
[2022-07-08] MEDS: multivitamins, therapeutics tablet PO SCH (08:04)
[2022-07-08] MEDS: metoprolol succinate 25mg (24-HOUR) SR. Tablet PO SCH (08:04)
[2022-07-08 09:07] LABS: BASOPHILS # (AUTO) 0.1 X10'3 (0-0.2); BASOPHILS % (AUTO) 0.4 % (0-1); EOSINOPHILS # (AUTO) 0.1 X10'3 (0-0.9); EOSINOPHILS % (AUTO) 0.7 % (0-6); HEMATOCRIT 38.4 % (42.0-52.0); HEMOGLOBIN 12.9 g/dl (14.0-17.9); LYMPHOCYTES # (AUTO) 1.1 X10'3 (1.1-4.8); MEAN CORPUSCULAR HEMOGLOBIN 31.8 PG (27.0-31.0); MEAN CORPUSCULAR HGB CONC 33.5 g/dL (33.0-36.5); MEAN CORPUSCULAR VOLUME 94.9 FL (78-98); MEAN PLATELET VOLUME 8.9 FL (7.4-10.4); MONOCYTES # (AUTO) 0.5 X10'3 (0-0.9); MONOCYTES % (AUTO) 3.8 % (2-12); NEUTROPHILS % (AUTO) 87.1 % (42-75); PLATELET COUNT 392 X10'3 (140-440); RED BLOOD COUNT 4.05 X10'6 (4.70-6.10); RED CELL DISTRIBUTION WIDTH 14.4 % (11.5-14.5); WHITE BLOOD COUNT 13.8 X10'3 (4.5-11.0)
[2022-07-08 09:21] LABS: ALANINE AMINOTRANSFERASE 29 U/L (12-78); ALBUMIN 2.6 G/DL (3.4-5.0); ALBUMIN/GLOBULIN RATIO 0.6 (1.1-1.5); ALKALINE PHOSPHATASE 70 IU/L (46-116); ANION GAP 7 (8-16); ASPARTATE AMINO TRANSFERASE 22 U/L (10-37); BILIRUBIN,TOTAL 0.2 MG/DL (0.1-1.0); BLOOD UREA NITROGEN 15 MG/DL (7-18); BUN/CREATININE RATIO 16.5 (5.4-32.0); CALCIUM 8.9 MG/DL (8.5-10.1); CHLORIDE 102 MMOL/L (99-107); CREATININE 0.91 MG/DL (0.60-1.10); GLUCOSE 121 MG/DL (70-104); MAGNESIUM 1.4 MG/DL (1.5-2.4); POTASSIUM 3.8 MMOL/L (3.5-5.1); SODIUM 141 MMOL/L (135-145); TOTAL CARBON DIOXIDE 32.2 MMOL/L (24-32); TOTAL PROTEIN 6.8 G/DL (6.4-8.2); eGFR > 90 ML/MIN
[2022-07-08] MEDS: levoTHYROXINE 75mcg tablet PO SCH (09:25)
[2022-07-08 11:40] VITALS: BP 101/64
[2022-07-08] MEDS ORDERED: potassium CL 10mEq/100ml bag 100 ML IV PRN (12:40)
[2022-07-08] MEDS ORDERED: magnesium 4gm in 100ml NS 100 ML IV PRN (12:40)
[2022-07-08] MEDS ORDERED: POTASSIUM BICARB 20meq eff tab 20 MEQ TABLET.EFF PO PRN (12:40)
[2022-07-08] MEDS ORDERED: magnesium 2GM in 50ml NS 50 ML IV PRN (12:40)
[2022-07-08] MEDS: magnesium Cl slow-release 64mg tablet PO PRN (13:47)
[2022-07-08 15:30] VITALS: BP 101/59
[2022-07-08 18:00] VITALS: BP 95/61
--- NOTE | 2022-07-08 18:30 | NUR ---
Problems reprioritized. Patient report given, questions answered & plan of care reviewed with FRANCOISE Arnett.
[2022-07-08] MEDS: psyllium seed 3.4 gm packet PO SCH (19:06)
[2022-07-08 22:00] VITALS: BP 99/74
[2022-07-09] VITALS (7 sets, daily range): BP systolic 95–106; BP diastolic 52–70
[2022-07-09 07:20] LABS: ALANINE AMINOTRANSFERASE 27 U/L (12-78); ALBUMIN 2.6 G/DL (3.4-5.0); ALBUMIN/GLOBULIN RATIO 0.7 (1.1-1.5); ALKALINE PHOSPHATASE 74 IU/L (46-116); ANION GAP 2 (8-16); ASPARTATE AMINO TRANSFERASE 21 U/L (10-37); BASOPHILS # (AUTO) 0.1 X10'3 (0-0.2); BASOPHILS % (AUTO) 0.7 % (0-1); BILIRUBIN,TOTAL 0.2 MG/DL (0.1-1.0); BLOOD UREA NITROGEN 15 MG/DL (7-18); CALCIUM 8.8 MG/DL (8.5-10.1); CHLORIDE 104 MMOL/L (99-107); CREATININE 0.75 MG/DL (0.60-1.10); EOSINOPHILS # (AUTO) 0.1 X10'3 (0-0.9); GLUCOSE 95 MG/DL (70-104); HEMATOCRIT 36.3 % (42.0-52.0); HEMOGLOBIN 12.1 g/dl (14.0-17.9); LYMPHOCYTES # (AUTO) 1.4 X10'3 (1.1-4.8); LYMPHOCYTES % (AUTO) 11.6 % (21-51); MAGNESIUM 1.6 MG/DL (1.5-2.4); MEAN CORPUSCULAR HEMOGLOBIN 31.7 PG (27.0-31.0); MEAN CORPUSCULAR HGB CONC 33.4 g/dL (33.0-36.5); MEAN CORPUSCULAR VOLUME 94.9 FL (78-98); MONOCYTES # (AUTO) 0.7 X10'3 (0-0.9); MONOCYTES % (AUTO) 5.6 % (2-12); NEUTROPHILS # (AUTO) 9.5 X10'3 (1.8-7.7); NEUTROPHILS % (AUTO) 81.1 % (42-75); PHOSPHORUS 3.2 MG/DL (2.3-4.5); PLATELET COUNT 388 X10'3 (140-440); POTASSIUM 3.8 MMOL/L (3.5-5.1); RED BLOOD COUNT 3.82 X10'6 (4.70-6.10); RED CELL DISTRIBUTION WIDTH 14.3 % (11.5-14.5); SODIUM 141 MMOL/L (135-145); TOTAL CARBON DIOXIDE 34.9 MMOL/L (24-32); TOTAL PROTEIN 6.6 G/DL (6.4-8.2); WHITE BLOOD COUNT 11.7 X10'3 (4.5-11.0); eGFR > 90 ML/MIN
[2022-07-09] MEDS: K and/or MAG REPLACEMENT MC SCH ×4 (08:00→20:00)
[2022-07-09] MEDS: pantoprazole 40mg Tablet.DR PO SCH (09:18)
[2022-07-09] MEDS: magnesium Cl slow-release 64mg tablet PO PRN (09:18)
[2022-07-09] MEDS: aripiprazole 5mg tablet PO SCH ×2 (09:18→19:16)
[2022-07-09] MEDS: heparin, porcine 5000 units/ml vial SQ SCH ×2 (09:18→19:16)
[2022-07-09] MEDS: clonazePAM 0.5mg tablet PO PRN (09:18)
[2022-07-09] MEDS: levoTHYROXINE 75mcg tablet PO SCH (09:19)
[2022-07-09] MEDS: metoprolol succinate 25mg (24-HOUR) SR. Tablet PO SCH (09:19)
[2022-07-09] MEDS: cetirizine 10mg tablet PO SCH (10:30)
[2022-07-09] MEDS: benztropine 1mg tablet PO SCH ×2 (10:30→19:17)
[2022-07-09] MEDS: multivitamins, therapeutics tablet PO SCH (10:30)
--- NOTE | 2022-07-09 19:00 | NUR ---
Problems reprioritized. Patient report given, questions answered & plan of care reviewed with FRANCOISE Patel.
[2022-07-09] MEDS: psyllium seed 3.4 gm packet PO SCH (22:17)
[2022-07-10 01:31] VITALS: BP 96/53
[2022-07-10 06:00] VITALS: BP 101/68
--- NOTE | 2022-07-10 06:26 | NUR ---
Problems reprioritized. Patient report given, questions answered & plan of care reviewed with FRANCOISE Gandhi.
[2022-07-10 06:49] LABS: BASOPHILS # (AUTO) 0.1 X10'3 (0-0.2); BASOPHILS % (AUTO) 0.8 % (0-1); EOSINOPHILS # (AUTO) 0.1 X10'3 (0-0.9); EOSINOPHILS % (AUTO) 1.1 % (0-6); HEMATOCRIT 36.9 % (42.0-52.0); HEMOGLOBIN 12.2 g/dl (14.0-17.9); LYMPHOCYTES # (AUTO) 1.6 X10'3 (1.1-4.8); LYMPHOCYTES % (AUTO) 15.9 % (21-51); MEAN CORPUSCULAR HEMOGLOBIN 32.7 PG (27.0-31.0); MEAN CORPUSCULAR HGB CONC 33.1 g/dL (33.0-36.5); MEAN CORPUSCULAR VOLUME 98.7 FL (78-98); MEAN PLATELET VOLUME 8.6 FL (7.4-10.4); MONOCYTES # (AUTO) 0.7 X10'3 (0-0.9); MONOCYTES % (AUTO) 6.6 % (2-12); NEUTROPHILS # (AUTO) 7.6 X10'3 (1.8-7.7); NEUTROPHILS % (AUTO) 75.6 % (42-75); PLATELET COUNT 361 X10'3 (140-440); RED BLOOD COUNT 3.74 X10'6 (4.70-6.10); RED CELL DISTRIBUTION WIDTH 14.9 % (11.5-14.5)
[2022-07-10 07:04] LABS: ALANINE AMINOTRANSFERASE 24 U/L (12-78); ALBUMIN 2.1 G/DL (3.4-5.0); ALBUMIN/GLOBULIN RATIO 0.5 (1.1-1.5); ALKALINE PHOSPHATASE 70 IU/L (46-116); ANION GAP 7 (8-16); ASPARTATE AMINO TRANSFERASE 32 U/L (10-37); BILIRUBIN,TOTAL 0.2 MG/DL (0.1-1.0); BLOOD UREA NITROGEN 12 MG/DL (7-18); BUN/CREATININE RATIO 15.4 (5.4-32.0); CALCIUM 8.5 MG/DL (8.5-10.1); CHLORIDE 104 MMOL/L (99-107); CREATININE 0.78 MG/DL (0.60-1.10); GLUCOSE 80 MG/DL (70-104); MAGNESIUM 1.8 MG/DL (1.5-2.4); PHOSPHORUS 3.5 MG/DL (2.3-4.5); POTASSIUM 4.1 MMOL/L (3.5-5.1); SODIUM 139 MMOL/L (135-145); TOTAL CARBON DIOXIDE 27.9 MMOL/L (24-32); eGFR > 90 ML/MIN
[2022-07-10] MEDS: K and/or MAG REPLACEMENT MC SCH ×4 (08:00→19:58)
[2022-07-10] MEDS: aripiprazole 5mg tablet PO SCH (08:31)
[2022-07-10] MEDS: multivitamins, therapeutics tablet PO SCH (08:31)
[2022-07-10] MEDS: metoprolol succinate 25mg (24-HOUR) SR. Tablet PO SCH (08:31)
[2022-07-10] MEDS: benztropine 1mg tablet PO SCH ×2 (08:31→20:02)
[2022-07-10] MEDS: pantoprazole 40mg Tablet.DR PO SCH (08:32)
[2022-07-10] MEDS: heparin, porcine 5000 units/ml vial SQ SCH ×2 (08:32→20:02)
[2022-07-10] MEDS: cetirizine 10mg tablet PO SCH (08:32)
[2022-07-10] MEDS: levoTHYROXINE 75mcg tablet PO SCH (08:36)
[2022-07-10 11:35] VITALS: BP 92/49
--- NOTE | 2022-07-10 15:36 | NUR ---
Report called to FRANCOISE Caruso .Pt moving to room 0247L
[2022-07-10 16:00] VITALS: BP 109/60
--- NOTE | 2022-07-10 16:45 | NUR ---
Patient was transferred from Tele, received report from FRANCOISE Gandhi and had the opportunity to ask questions.
[2022-07-10 18:00] VITALS: BP 109/64
--- NOTE | 2022-07-10 18:10 | NUR ---
Problems reprioritized. Patient report given, questions answered & plan of care reviewed with FRANCOISE Escobar.
--- NOTE | 2022-07-10 18:30 | NUR ---
Patient in room ORTHO 4009. I have received report from FRANCOISE GIRON and had the opportunity to ask questions and assume patient care. Addendum: 07/10/22 at 1915 by Shawn Clark RN Amended: Links added.
[2022-07-10] MEDS: ARIPIPRAZOLE 15 MG TABLET PO SCH (20:03)
[2022-07-10] MEDS: clonazePAM 0.5mg tablet PO PRN (20:06)
[2022-07-10] MEDS: psyllium seed 3.4 gm packet PO SCH (20:07)
[2022-07-10 22:00] VITALS: BP 101/66
[2022-07-11 06:00] VITALS: BP 103/50
--- NOTE | 2022-07-11 06:08 | NUR ---
Problems reprioritized. Patient report given, questions answered & plan of care reviewed with FRANCOISE GIRON. Addendum: 07/11/22 at 0608 by Shawn Clark RN Amended: Links added.
--- NOTE | 2022-07-11 06:28 | NUR ---
Patient in room ORTHO 4009. I have received report from FRANCOISE Escobar and had the opportunity to ask questions and assume patient care.
[2022-07-11] MEDS: K and/or MAG REPLACEMENT MC SCH ×4 (07:30→20:00)
[2022-07-11] MEDS: multivitamins, therapeutics tablet PO SCH (07:38)
[2022-07-11] MEDS: metoprolol succinate 25mg (24-HOUR) SR. Tablet PO SCH (07:38)
[2022-07-11] MEDS: pantoprazole 40mg Tablet.DR PO SCH (07:38)
[2022-07-11] MEDS: cetirizine 10mg tablet PO SCH (07:38)
[2022-07-11] MEDS: benztropine 1mg tablet PO SCH ×2 (07:39→21:09)
[2022-07-11] MEDS: ARIPIPRAZOLE 15 MG TABLET PO SCH ×2 (07:39→21:09)
[2022-07-11] MEDS: heparin, porcine 5000 units/ml vial SQ SCH ×2 (07:39→21:10)
[2022-07-11 10:00] VITALS: BP 96/61
[2022-07-11] MEDS: levoTHYROXINE 75mcg tablet PO SCH (11:02)
[2022-07-11] MEDS: methylphenidate 5mg tablet PO SCH ×2 (12:39→17:53)
--- NOTE | 2022-07-11 17:58 | NUR ---
HAND HARDENER documentation: I have reviewed and agree with all interventions, assessments performed and documented by Shyanne OWUSU.
[2022-07-11 18:00] VITALS: BP 102/64
--- NOTE | 2022-07-11 18:34 | NUR ---
Problems reprioritized. Patient report given, questions answered & plan of care reviewed with FRANCOISE Harden.
--- NOTE | 2022-07-11 18:53 | NUR ---
Patient in room ORTHO 4009. I have received report from Shyanne OWUSU and had the opportunity to ask questions and assume patient care.
[2022-07-11] MEDS: psyllium seed 3.4 gm packet PO SCH (21:11)
--- NOTE | 2022-07-11 21:42 | NUR ---
Student Medication Administration: For this medication-pass time frame, all medication were reviewed, dispensed, administered and documented per hospital policy by RENALDO Deshpande [facility].
[2022-07-11 22:00] VITALS: BP 111/65
--- NOTE | 2022-07-11 22:44 | NUR ---
Student documentation: I have reviewed interventions, assessments performed and documented by by Holland MACARIO [facility].
[2022-07-12 06:00] VITALS: BP 114/59
--- NOTE | 2022-07-12 06:22 | NUR ---
Problems reprioritized. Patient report given, questions answered & plan of care reviewed with Shyanne PARK.
--- NOTE | 2022-07-12 06:22 | NUR ---
Patient in room ORTHO 4009. I have received report from FRANCOISE Harden and had the opportunity to ask questions and assume patient care.
[2022-07-12] MEDS: pantoprazole 40mg Tablet.DR PO SCH (07:35)
[2022-07-12] MEDS: ARIPIPRAZOLE 15 MG TABLET PO SCH ×2 (07:36→20:33)
[2022-07-12] MEDS: benztropine 1mg tablet PO SCH ×2 (07:37→20:33)
[2022-07-12] MEDS: multivitamins, therapeutics tablet PO SCH (07:38)
[2022-07-12] MEDS: metoprolol succinate 25mg (24-HOUR) SR. Tablet PO SCH (07:39)
[2022-07-12] MEDS: cetirizine 10mg tablet PO SCH (07:40)
[2022-07-12] MEDS: methylphenidate 5mg tablet PO SCH ×3 (07:40→17:37)
[2022-07-12] MEDS: heparin, porcine 5000 units/ml vial SQ SCH ×2 (07:42→20:34)
[2022-07-12] MEDS: K and/or MAG REPLACEMENT MC SCH ×4 (08:21→20:00)
[2022-07-12 08:30] VITALS: BP 100/63
[2022-07-12] MEDS: levoTHYROXINE 75mcg tablet PO SCH (09:09)
--- NOTE | 2022-07-12 09:30 | NUR ---
Reassessment: PO intake slightly fluctuates however overall pt eating well with mostly 100% PO intake while receiving double protein TID meeting estimated nutrient needs. LB 07/11, no documentation of quantity of stool output in I&O. No further nutrition intervention implemented at this time. Will continue to follow. Recommendations: 1. Continue low fiber/soft diet 2. Double eggs WB, double meat BIDLD 3. Bowel care per physician 4. Weekly scaled weights Addendum: 07/12/22 at [address] Amended: Links added.
[2022-07-12 10:00] VITALS: BP 101/59
[2022-07-12] MEDS ORDERED: fluconazole 100mg tablet PO ONE (10:55)
--- NOTE | 2022-07-12 11:06 | NUR ---
reviewed assessment documentation [facility] assistant director of nursing
--- NOTE | 2022-07-12 17:45 | NUR ---
I have reviewed and agree with all interventions, assessments performed, and documention by Shyanne Mon LVN.
[2022-07-12 18:00] VITALS: BP 105/69
--- NOTE | 2022-07-12 18:20 | NUR ---
Patient in room ORTHO 4009. I have received report from Shyanne PARK and had the opportunity to ask questions and assume patient care.
--- NOTE | 2022-07-12 18:20 | NUR ---
Problems reprioritized. Patient report given, questions answered & plan of care reviewed with FRANCOISE Harden.
[2022-07-12] MEDS: psyllium seed 3.4 gm packet PO SCH (20:34)
[2022-07-12 22:00] VITALS: BP 110/61
--- NOTE | 2022-07-12 22:00 | NUR ---
Student Medication Administration: Between 1999 - 2099 For this medication-pass time frame, all medication were reviewed, dispensed, administered and documented per hospital policy by My Bernal assistant chief nursing officer.
--- NOTE | 2022-07-12 23:00 | NUR ---
Student documentation: I have reviewed and agree with all interventions, assessments performed and documented by My Bernal nursing educator.
--- NOTE | 2022-07-12 23:18 | NUR ---
Charting by My MACARIO reviewed by Elieser Barraza RN
--- NOTE | 2022-07-12 23:55 | NUR ---
Received report from ROEL Gandhi. Patient to follow shortly. Addendum: 07/13/22 at 0312 by Fina Galarza RN Please ignore - wrong patient.
--- NOTE | 2022-07-13 06:30 | NUR ---
received report from keshav hermosillo
[2022-07-13] MEDS: pantoprazole 40mg Tablet.DR PO SCH (07:10)
[2022-07-13] MEDS: benztropine 1mg tablet PO SCH ×2 (07:11→20:37)
[2022-07-13] MEDS: ARIPIPRAZOLE 15 MG TABLET PO SCH ×2 (07:11→20:37)
[2022-07-13] MEDS: multivitamins, therapeutics tablet PO SCH (07:12)
[2022-07-13] MEDS: fluconazole 100mg tablet PO SCH (07:13)
[2022-07-13] MEDS: levoTHYROXINE 75mcg tablet PO SCH (07:14)
[2022-07-13] MEDS: metoprolol succinate 25mg (24-HOUR) SR. Tablet PO SCH (07:14)
[2022-07-13] MEDS: cetirizine 10mg tablet PO SCH (07:14)
[2022-07-13] MEDS: heparin, porcine 5000 units/ml vial SQ SCH ×2 (07:15→20:38)
[2022-07-13] MEDS: methylphenidate 5mg tablet PO SCH ×3 (07:16→17:14)
[2022-07-13] MEDS: K and/or MAG REPLACEMENT MC SCH ×4 (07:49→20:00)
[2022-07-13 10:00] VITALS: BP 96/60
[2022-07-13 18:00] VITALS: BP 107/68
--- NOTE | 2022-07-13 18:11 | NUR ---
GAVE REPORT TO FRANCOISE APODACA
--- NOTE | 2022-07-13 18:30 | NUR ---
Patient in room ORTHO 4009. I have received report from Dina OWUSU and had the opportunity to ask questions and assume patient care.
[2022-07-13] MEDS: psyllium seed 3.4 gm packet PO SCH (20:38)
[2022-07-13 22:00] VITALS: BP 101/63
[2022-07-14 06:00] VITALS: BP 106/64
--- NOTE | 2022-07-14 06:58 | NUR ---
Patient in room ORTHO 4009. I have received report from Fina OWUSU and had the opportunity to ask questions and assume patient care.
--- NOTE | 2022-07-14 06:59 | NUR ---
Problems reprioritized. Patient report given, questions answered & plan of care reviewed with Margarita OWUSU.
[2022-07-14] MEDS: metoprolol succinate 25mg (24-HOUR) SR. Tablet PO SCH (08:00)
[2022-07-14] MEDS: K and/or MAG REPLACEMENT MC SCH ×4 (08:00→20:00)
[2022-07-14] MEDS: benztropine 1mg tablet PO SCH ×2 (09:13→20:26)
[2022-07-14] MEDS: ARIPIPRAZOLE 15 MG TABLET PO SCH ×2 (09:13→20:26)
[2022-07-14] MEDS: pantoprazole 40mg Tablet.DR PO SCH (09:13)
[2022-07-14] MEDS: levoTHYROXINE 75mcg tablet PO SCH (09:14)
[2022-07-14] MEDS: cetirizine 10mg tablet PO SCH (09:14)
[2022-07-14] MEDS: multivitamins, therapeutics tablet PO SCH (09:14)
[2022-07-14] MEDS: fluconazole 100mg tablet PO SCH (09:14)
[2022-07-14] MEDS: methylphenidate 5mg tablet PO SCH ×3 (09:14→17:41)
[2022-07-14] MEDS: heparin, porcine 5000 units/ml vial SQ SCH ×2 (09:15→20:26)
--- NOTE | 2022-07-14 11:52 | NUR ---
No new labs today MD pedro
[2022-07-14 12:11] VITALS: BP 109/55
[2022-07-14 18:00] VITALS: BP 100/68
--- NOTE | 2022-07-14 18:20 | NUR ---
Patient in room ORTHO 4006. I have received report from Margarita OWUSU and had the opportunity to ask questions and assume patient care. Addendum: 07/14/22 at 1947 by Dianelys Wetzel RN Amended: Links added.
--- NOTE | 2022-07-14 18:22 | NUR ---
Problems reprioritized. Patient report given, questions answered & plan of care reviewed with Dianelys OWUSU.
[2022-07-14] MEDS: psyllium seed 3.4 gm packet PO SCH (20:26)
[2022-07-14 22:00] VITALS: BP 124/72
--- NOTE | 2022-07-15 05:00 | NUR ---
Pt. was awake all night with no s/s of discomfort; appeared pleasant and always smiling this shift. Colostomy in place patent with no leakage and no output this shift-surrounding skin without complications. Call light within reach and bed in low position. Addendum: 07/15/22 at 0649 by Dianelys Wetzel RN Amended: Links added.
[2022-07-15 06:00] VITALS: BP 100/74
--- NOTE | 2022-07-15 06:10 | NUR ---
Problems reprioritized. Patient report given, questions answered & plan of care reviewed with Vika OWUSU. Addendum: 07/15/22 at 0655 by Dianelys Wetzel RN Amended: Links added.
[2022-07-15] MEDS: K and/or MAG REPLACEMENT MC SCH ×4 (07:03→20:00)
[2022-07-15] MEDS: pantoprazole 40mg Tablet.DR PO SCH (08:08)
[2022-07-15] MEDS: ARIPIPRAZOLE 15 MG TABLET PO SCH ×2 (08:08→19:24)
[2022-07-15] MEDS: multivitamins, therapeutics tablet PO SCH (08:09)
[2022-07-15] MEDS: benztropine 1mg tablet PO SCH ×2 (08:09→19:25)
[2022-07-15] MEDS: cetirizine 10mg tablet PO SCH (08:10)
[2022-07-15] MEDS: methylphenidate 5mg tablet PO SCH ×3 (08:11→17:55)
--- NOTE | 2022-07-15 08:13 | NUR ---
Student Medication Administration: For this medication-pass time frame, all medication were reviewed, dispensed, administered and documented per hospital policy by GILL VICENTE,STUDENT RN; VLADIMIR LAGOS RN- INSTRUCTOR.
[2022-07-15] MEDS: fluconazole 100mg tablet PO SCH (08:20)
[2022-07-15] MEDS: heparin, porcine 5000 units/ml vial SQ SCH ×2 (08:30→19:26)
[2022-07-15 10:00] VITALS: BP 116/66
--- NOTE | 2022-07-15 10:44 | NUR ---
SW Dr. Johnson regarding pt's blood pressure and if I should give his Metoprolol. Dr. Johnson did instruct me to give him the Metoprolol due to heartrate of 106.
[2022-07-15] MEDS: metoprolol succinate 25mg (24-HOUR) SR. Tablet PO SCH (11:24)
[2022-07-15] MEDS: levoTHYROXINE 75mcg tablet PO SCH (14:30)
--- NOTE | 2022-07-15 15:34 | NUR ---
Pt's Metoprolol dose was administered by Shannon Lewis, nursing services manager, and witnessed by myself.
[2022-07-15 18:00] VITALS: BP 106/66
--- NOTE | 2022-07-15 18:28 | NUR ---
Patient in room ORTHO 4006. I have received report from Vika OWUSU and had the opportunity to ask questions and assume patient care. Addendum: 07/15/22 at 1831 by Dianelys Wetzel RN Amended: Links added.
--- NOTE | 2022-07-15 18:41 | NUR ---
Problems reprioritized. Patient report given, questions answered & plan of care reviewed with Dianelys.
[2022-07-15] MEDS: psyllium seed 3.4 gm packet PO SCH (19:27)
[2022-07-15 22:00] VITALS: BP 102/59
--- NOTE | 2022-07-16 05:00 | NUR ---
Pt. slept well this shift. No complaints and no s/s of discomfort noted this shift. Colostomy in place patent with medium soft stool, no leakage and -surrounding skin without complications. Call light within reach and bed in low position. Addendum: 07/16/22 at 0701 by Dianelys Wetzel RN Amended: Links added.
[2022-07-16 06:00] VITALS: BP 102/64
--- NOTE | 2022-07-16 07:49 | NUR ---
Patient in room ORTHO 4009B. I have received report from FRANCOISE VARELA and had the opportunity to ask questions and assume patient care.
[2022-07-16] MEDS: K and/or MAG REPLACEMENT MC SCH ×3 (08:00→19:48)
[2022-07-16] MEDS: benztropine 1mg tablet PO SCH ×2 (09:13→19:45)
[2022-07-16] MEDS: multivitamins, therapeutics tablet PO SCH (09:13)
[2022-07-16] MEDS: ARIPIPRAZOLE 15 MG TABLET PO SCH ×2 (09:13→19:47)
[2022-07-16] MEDS: pantoprazole 40mg Tablet.DR PO SCH (09:13)
[2022-07-16] MEDS: cetirizine 10mg tablet PO SCH (09:17)
[2022-07-16] MEDS: levoTHYROXINE 75mcg tablet PO SCH (09:17)
[2022-07-16] MEDS: metoprolol succinate 25mg (24-HOUR) SR. Tablet PO SCH (09:17)
[2022-07-16] MEDS: methylphenidate 5mg tablet PO SCH ×3 (09:18→17:31)
[2022-07-16] MEDS: fluconazole 100mg tablet PO SCH (09:18)
[2022-07-16] MEDS: heparin, porcine 5000 units/ml vial SQ SCH ×2 (09:22→19:48)
[2022-07-16 10:00] VITALS: BP 104/61
[2022-07-16 18:00] VITALS: BP 103/58
--- NOTE | 2022-07-16 18:30 | NUR ---
Problems reprioritized. Patient report given, questions answered & plan of care reviewed with FRANCOISE HERNANDEZ.
[2022-07-16 22:00] VITALS: BP 100/70
[2022-07-16] MEDS: psyllium seed 3.4 gm packet PO SCH (22:00)
[2022-07-17 06:00] VITALS: BP 120/55
--- NOTE | 2022-07-17 06:30 | NUR ---
Patient in room ORTHO 4009. I have received report from Milton OWUSU and had the opportunity to ask questions and assume patient care.
[2022-07-17] MEDS: K and/or MAG REPLACEMENT MC SCH ×2 (08:00→20:00)
[2022-07-17] MEDS: fluconazole 100mg tablet PO SCH (08:36)
[2022-07-17] MEDS: benztropine 1mg tablet PO SCH ×2 (08:36→20:31)
[2022-07-17] MEDS: metoprolol succinate 25mg (24-HOUR) SR. Tablet PO SCH (08:36)
[2022-07-17] MEDS: multivitamins, therapeutics tablet PO SCH (08:36)
[2022-07-17] MEDS: ARIPIPRAZOLE 15 MG TABLET PO SCH ×2 (08:36→20:31)
[2022-07-17] MEDS: pantoprazole 40mg Tablet.DR PO SCH (08:36)
[2022-07-17] MEDS: levoTHYROXINE 75mcg tablet PO SCH (08:36)
[2022-07-17] MEDS: cetirizine 10mg tablet PO SCH (08:36)
[2022-07-17] MEDS: methylphenidate 5mg tablet PO SCH ×3 (08:36→18:11)
[2022-07-17] MEDS: heparin, porcine 5000 units/ml vial SQ SCH ×2 (08:37→20:31)
--- NOTE | 2022-07-17 09:25 | NUR ---
No labs ordered today
[2022-07-17 10:00] VITALS: BP 107/67
[2022-07-17 18:00] VITALS: BP 102/66
--- NOTE | 2022-07-17 18:25 | NUR ---
Problems reprioritized. Patient report given, questions answered & plan of care reviewed with Fina OWUSU.
--- NOTE | 2022-07-17 18:40 | NUR ---
Patient in room ORTHO 4009. I have received report from Margarita OWUSU and Jennie PARK and had the opportunity to ask questions and assume patient care.
[2022-07-17] MEDS: psyllium seed 3.4 gm packet PO SCH (20:31)
[2022-07-18 02:00] VITALS: BP 108/71
[2022-07-18 06:00] VITALS: BP 101/50
--- NOTE | 2022-07-18 06:30 | NUR ---
Reported off to Margarita OWUSU
[2022-07-18] MEDS: K and/or MAG REPLACEMENT MC SCH (08:00)
[2022-07-18] MEDS: levoTHYROXINE 75mcg tablet PO SCH (08:30)
[2022-07-18] MEDS: methylphenidate 5mg tablet PO SCH ×2 (08:30→12:49)
[2022-07-18] MEDS: metoprolol succinate 25mg (24-HOUR) SR. Tablet PO SCH (08:30)
[2022-07-18] MEDS: multivitamins, therapeutics tablet PO SCH (08:30)
[2022-07-18] MEDS: ARIPIPRAZOLE 15 MG TABLET PO SCH (08:30)
[2022-07-18] MEDS: benztropine 1mg tablet PO SCH (08:30)
[2022-07-18] MEDS: heparin, porcine 5000 units/ml vial SQ SCH (08:31)
[2022-07-18] MEDS: pantoprazole 40mg Tablet.DR PO SCH (08:31)
[2022-07-18] MEDS: fluconazole 100mg tablet PO SCH (08:32)
[2022-07-18] MEDS: cetirizine 10mg tablet PO SCH (08:32)
--- NOTE | 2022-07-18 08:47 | NUR ---
Reassessment: PO intake continues to slightly fluctuate though overall eating well with mostly 100% PO intake while receiving double protein with meals. Pt now on a mechanical soft grind all diet. LBM 07/17 though no documentation of stool output in I&O. No nutrition interventions implemented at this time. Will continue to follow. Recommendations: 1. Continue low fiber/soft diet; MM5/thin liquids 2. Double eggs WB, double meat BIDLD 3. Bowel care per physician 4. Weekly scaled weights Addendum: 07/18/22 at [address] Amended: Links added.
[2022-07-18 10:00] VITALS: BP 104/62
[2022-07-18] MEDS ORDERED: PSYL283P10 PO (12:33)
[2022-07-18] MEDS ORDERED: MAGN400O6 PO (12:33)
[2022-07-18] MEDS ORDERED: ACET325T58 PO (12:33)
[2022-07-18] MEDS ORDERED: MAGN296S68 PO (12:33)
[2022-07-18] MEDS ORDERED: CLON-528 PO (12:33)
[2022-07-18] MEDS ORDERED: OMEP20CA15 PO (12:33)
[2022-07-18] MEDS ORDERED: METH54TA12 PO (12:33)
[2022-07-18] MEDS ORDERED: LOPE2TAB23 PO (12:33)
[2022-07-18] MEDS ORDERED: FLUC100T64 PO (12:33)
[2022-07-18] MEDS ORDERED: POLY510P31 PO (12:33)
[2022-07-18] MEDS ORDERED: LEVO75TA7 PO (12:33)
[2022-07-18] MEDS ORDERED: CETI-90 PO (12:33)
[2022-07-18] MEDS ORDERED: CLON0.1T PO (12:33)
[2022-07-18] MEDS ORDERED: METO-539 PO (12:33)
[2022-07-18] MEDS ORDERED: CHOL400T PO (12:33)
[2022-07-18] MEDS ORDERED: MULT-620 PO (12:33)
[2022-07-18] MEDS ORDERED: ARIP15TA3 PO (12:33)
[2022-07-18] MEDS ORDERED: METO50TA7 PO (12:33)
[2022-07-18] MEDS ORDERED: BENZ1TAB7 PO (12:33)
--- NOTE | 2022-07-18 13:20 | NUR ---
Discharge instructions reviewed with Sudarshan Benedict with [facility]. Sudarshan verbalized understanding. Patient dressed in shorts and a Tshirt retrieved from the ER. Patient also has a depends on for transport. Patient had No IV to DC'd
--- NOTE | 2022-07-18 13:30 | NUR ---
Contacted Olena with [facility] and she will contact Sudarshan Benedict with [facility] re: helping to get patient colostomy supplied in addition to the 2 I sent patient with.
== END 2022-07-18 13:30 | disposition home or self-care (01) | DRG 710 ==
LOC: ER 08:26 → ED HOLD 13:32 → EDBEDREQ 15:05 → PCU 3S 16:27 → ORTHO 4S 07-10 15:35
PROVIDERS: ADMIT Family Medicine; ATTEND Family Medicine
PROC: 0DJD8ZZ Inspection of Lower Intestinal Tract, Via Natural or Artificial Opening Endoscopic (ICD-10-PCS; 2022-06-28)
PROC: 0DNW0ZZ Release Peritoneum, Open Approach (ICD-10-PCS; 2022-06-29)
PROC: 3E0T3BZ Introduction of Anesthetic Agent into Peripheral Nerves and Plexi, Percutaneous Approach (ICD-10-PCS; 2022-06-29)
PROC: 3E0T33Z Introduction of Anti-inflammatory into Peripheral Nerves and Plexi, Percutaneous Approach (ICD-10-PCS; 2022-06-29)
PROC: 0DTN0ZZ Resection of Sigmoid Colon, Open Approach (ICD-10-PCS; principal; 2022-06-29 20:04)
DX: A41.9 Sepsis, unspecified organism (principal); K56.2 Volvulus; E83.41 Hypermagnesemia; E03.9 Hypothyroidism, unspecified; I10 Essential (primary) hypertension; R93.3 Abnormal findings on diagnostic imaging of other parts of digestive tract; B35.6 Tinea cruris; Z20.822 Contact with and (suspected) exposure to COVID-19; K21.9 Gastro-esophageal reflux disease without esophagitis; K52.9 Noninfective gastroenteritis and colitis, unspecified; K56.41 Fecal impaction; L53.9 Erythematous condition, unspecified; K66.0 Peritoneal adhesions (postprocedural) (postinfection); Z79.899 Other long term (current) drug therapy; Z91.011 Allergy to milk products
CPT/HCPCS: 36415; 45330; 71045; 74176; 80048; 80053; 80061; 81001; 82948; 83036; 83605; 83735; 84100; 84132; 84145; 84443; 85007; 85025; 87040; 87045; 87046; 87324; 87449; 87811; 89055; 94760; 96365; 97116; 97530; 97535; 99152; 99285; A4349; A4421; A4615; A4618; A4620; A4649; A5200; A6209; A6212; A6213; A6250; A6253; A6258; A6266; A6407; A6449; A7000; C1758; C9290; G0378; J0694; J0696; J1644; J2250; J2270; J2704; J3010; J3480; J3490; J7030; J7040; J7120

== ENCOUNTER 2022-07-19 21:11 | Emergency (ER) | payer MEDICAID ==
[~2022-07-19] VITALS: Ht 165.1 cm; Wt 66.3 kg
[~2022-07-19 21:11] MED LIST changes: +ACET325T58 PO; +ARIP15TA3 PO; -ARIP5TAB14 PO; +CETI-90 PO; +CHOL400T PO; +FLUC100T64 PO; -LEVO112T39 PO; +LEVO75TA7 PO; +LOPE2TAB23 PO; +MAGN296S68 PO; +MAGN400O6 PO; +METH54TA12 PO; -P-EP-35 PO; -POLY119P2 PO; +POLY510P31 PO; +PSYL283P10 PO
[2022-07-20 02:27] LABS: BASOPHILS # (AUTO) 0.1 X10'3 (0-0.2); BASOPHILS % (AUTO) 1.2 % (0-1); EOSINOPHILS # (AUTO) 0.2 X10'3 (0-0.9); EOSINOPHILS % (AUTO) 2.3 % (0-6); HEMATOCRIT 39.2 % (42.0-52.0); HEMOGLOBIN 13.5 g/dl (14.0-17.9); LYMPHOCYTES # (AUTO) 1.5 X10'3 (1.1-4.8); LYMPHOCYTES % (AUTO) 21.4 % (21-51); MEAN CORPUSCULAR HEMOGLOBIN 32.9 PG (27.0-31.0); MEAN CORPUSCULAR HGB CONC 34.3 g/dL (33.0-36.5); MEAN PLATELET VOLUME 8.6 FL (7.4-10.4); MONOCYTES # (AUTO) 0.6 X10'3 (0-0.9); MONOCYTES % (AUTO) 9.4 % (2-12); NEUTROPHILS # (AUTO) 4.5 X10'3 (1.8-7.7); NEUTROPHILS % (AUTO) 65.7 % (42-75); PLATELET COUNT 275 X10'3 (140-440); RED BLOOD COUNT 4.08 X10'6 (4.70-6.10); RED CELL DISTRIBUTION WIDTH 16.2 % (11.5-14.5); WHITE BLOOD COUNT 6.8 X10'3 (4.5-11.0)
[2022-07-20 02:48] LABS: ALANINE AMINOTRANSFERASE 29 U/L (12-78); ALBUMIN 3.3 G/DL (3.4-5.0); ALBUMIN/GLOBULIN RATIO 0.9 (1.1-1.5); ALKALINE PHOSPHATASE 84 IU/L (46-116); ANION GAP 4 (8-16); ASPARTATE AMINO TRANSFERASE 19 U/L (10-37); BILIRUBIN,TOTAL 0.3 MG/DL (0.1-1.0); BLOOD UREA NITROGEN 17 MG/DL (7-18); BUN/CREATININE RATIO 19.5 (5.4-32.0); CALCIUM 9.1 MG/DL (8.5-10.1); CHLORIDE 102 MMOL/L (99-107); CREATININE 0.87 MG/DL (0.60-1.10); GLUCOSE 95 MG/DL (70-104); LIPASE 278 U/L (73-393); SODIUM 139 MMOL/L (135-145); TOTAL CARBON DIOXIDE 33.5 MMOL/L (24-32); TOTAL PROTEIN 7.1 G/DL (6.4-8.2); eGFR > 90 ML/MIN
[2022-07-20 06:56] VITALS: BP 98/74
== END 2022-07-20 06:59 | disposition home or self-care (01) ==
LOC: ER 21:12
DX: K59.00 Constipation, unspecified (principal); Z98.890 Other specified postprocedural states; Z91.011 Allergy to milk products; Z79.899 Other long term (current) drug therapy
CPT/HCPCS: 36415; 74176; 80053; 83605; 83690; 85025; 99284

== ENCOUNTER 2022-09-29 09:30 | Inpatient (IN) | payer MEDICAID ==
[~2022-09-29] VITALS: Ht 170.2 cm; Wt 168.6 kg
[2022-09-29] MEDS ORDERED: METH54TA4 PO (14:27)
[2022-09-29] MEDS ORDERED: CETI10TA14 PO (14:27)
[2022-09-29] MEDS ORDERED: POLY17PO10 PO (14:27)
[2022-09-29] MEDS ORDERED: MULT-1085 PO (14:27)
[2022-09-29] MEDS ORDERED: PSYL3.4P5 PO (14:27)
[2022-09-29] MEDS ORDERED: LACT1CAP65 PO (14:27)
[2022-09-29] MEDS ORDERED: DOCU100C40 PO (14:27)
[2022-09-29] MEDS ORDERED: METO-384 PO (14:27)
[2022-09-29] MEDS ORDERED: CLON0.1T2 PO (14:27)
[2022-09-29] MEDS ORDERED: ARIP5TAB14 PO (14:27)
[2022-09-29] MEDS ORDERED: BENZ1TAB7 PO (14:27)
[2022-09-29] MEDS ORDERED: LEVO75TA7 PO (14:27)
[2022-10-02] MEDS ORDERED: ERGO400C PO (10:54)
[2022-10-02] MEDS ORDERED: ASCO500T10 PO (10:54)
[2022-10-02] MEDS ORDERED: OMEP20CA15 PO (10:55)
[2022-10-03] VITALS (12 sets, daily range): BP systolic 93–150; BP diastolic 58–76
[2022-10-03] MEDS ORDERED: ringers solution, lacted 1,000 ML IV SCH ×2 (05:00→14:25)
[2022-10-03] MEDS ORDERED: famotidine 20mg tablet PO ONE (05:30)
[2022-10-03] MEDS ORDERED: ceFOXitin 2GM-NS 100mL ADDvant 100 ML IV ONE (09:27)
[2022-10-03] MEDS ORDERED: MIDAZOLAM PO ONE (12:55)
[2022-10-03] MEDS ORDERED: [UNRECOGNIZED DRUG - OTHER] IV ONE (13:05)
--- NOTE | 2022-10-03 14:00 | NUR ---
PT DEVELOPMENTALLY DELAYED, NONVERBAL. JAZMYNE FIELDS-CAREGIVER AT THE BEDSIDE. PT IS PLEASANT AND MILDLY COOPERATIVE. PT DID NOT ALLOW EKG TO BE DONE, APPEARED TO BE AFRAID ON THE STICKER LEADS. IV ATTEMPT WAS MADE, IV WAS SUCCESSFULLY PLACED WITH PT COOPERATION, HOWEVER HE PULLED HIS ARM AWAY BEFORE THE IV COULD BE TAPED DOWN, THUS UNSUCCESSFUL. DR GALARZA ANESTHESIA CALLED FOR SEDATION MEDICATION ORDERS. VERSED PO GIVEN IN APPLE JUICE WITH PTS FULL COOPERATION. BECAME SEDATED/SLEPT WITHIN 15 MINUTES. CONT SAO2 MONITOR PLACED WITH SAO2 98-100% ON RM AIR. IV PLACED BY PIC LINE RN WITH LABS DRAWN AND EKG COMPLETED. DR GALARZA AT THE BEDSIDE, PT'S CONDITION STABLE. Addendum: 10/03/22 at 1532 by Marisa Maardiaga RN Amended: Links added.
[2022-10-03 14:10] LABS: BASOPHILS % (AUTO) 0.8 % (0-1); EOSINOPHILS % (AUTO) 0.3 % (0-6); LYMPHOCYTES # (AUTO) 0.8 X10'3 (1.1-4.8); LYMPHOCYTES % (AUTO) 13.1 % (21-51); MEAN CORPUSCULAR HEMOGLOBIN 31.5 PG (27.0-31.0); MEAN CORPUSCULAR HGB CONC 33.3 g/dL (33.0-36.5); MEAN CORPUSCULAR VOLUME 94.6 FL (78-98); MEAN PLATELET VOLUME 10.2 FL (7.4-10.4); MONOCYTES # (AUTO) 0.3 X10'3 (0-0.9); MONOCYTES % (AUTO) 4.5 % (2-12); NEUTROPHILS # (AUTO) 4.9 X10'3 (1.8-7.7); NEUTROPHILS % (AUTO) 81.3 % (42-75); PRE OP HEMATOCRIT 41.3 % (42.0-52.0); PRE OP HEMOGLOBIN 13.8 g/dL (14.0-17.9); PRE OP PLATELET COUNT 196 X10'3 (140-440); RED BLOOD COUNT 4.37 X10'6 (4.70-6.10); RED CELL DISTRIBUTION WIDTH 13.9 % (11.5-14.5)
[2022-10-03 14:20] LABS: PRE OP INR 1.1 INR
[2022-10-03 14:25] LABS: ALBUMIN 3.6 G/DL (3.4-5.0); ALBUMIN/GLOBULIN RATIO 1.1 (1.1-1.5); ALKALINE PHOSPHATASE 94 IU/L (46-116); BLOOD UREA NITROGEN 14 MG/DL (7-18); BUN/CREATININE RATIO 16.1 (5.4-32.0); CALCIUM 8.5 MG/DL (8.5-10.1); CHLORIDE 103 MMOL/L (99-107); CREATININE 0.87 MG/DL (0.60-1.10); PRE OP ALT 34 U/L (30-65); PRE OP ANION GAP 7 (8-16); PRE OP AST 30 U/L (10-37); PRE OP BILIRUB, TOTAL 0.8 MG/DL (0.0-1.0); PRE OP GLUCOSE 99 MG/DL (70-104); PRE OP SODIUM 139 MMOL/L (135-145); TOTAL CARBON DIOXIDE 29.5 MMOL/L (24-32); eGFR > 90 ML/MIN
[2022-10-03] MEDS ORDERED: morphine 4 MG/ML inj SYRINge IV PRN (14:25)
[2022-10-03] MEDS ORDERED: meperidine/PF 25mg/ml syringe IV PRN (14:25)
[2022-10-03] MEDS ORDERED: acetaminophen 1,000mg/100ml IV 100 ML IV PRN (14:25)
[2022-10-03] MEDS ORDERED: hydrALAZINE 20mg/ml inj. IV PRN (14:25)
[2022-10-03] MEDS ORDERED: ondansetron/PF 4mg/2ml inj IV PRN ×2 (14:25→19:10)
[2022-10-03] MEDS ORDERED: proCHLORperazine 10 MG/2 ml inj IV PRN (14:25)
[2022-10-03] MEDS ORDERED: HYDROmorphone/PF 0.2 MG/ML SYRINGE IV PRN (14:25)
[2022-10-03] MEDS ORDERED: labetalol 20mg/4ml (5mg/ml) syringe IV PRN (14:25)
[2022-10-03] MEDS ORDERED: morphine 2 MG/ML inj. syringe IV PRN (14:25)
[2022-10-03 14:27] LABS: PRE OP POTASSIUM 3.8 MMOL/L (3.4-5.1)
--- NOTE | 2022-10-03 15:06 | NUR ---
PT AROUSES EASILY, YET CONT TO MOSTLY SLEEP. SAO2 100% RA. Addendum: 10/03/22 at 1532 by Marisa Maradiaga RN Amended: Links added.
--- NOTE | 2022-10-03 16:03 | NUR ---
PT AWAKE, DROWSY. CALM AND RESTING ON GURNEY. SAO2 100%RA, HR 76, RR 16. REPORT GIVEN TO DR GALARZA AND ANGELIC RN OR NURSE. PT TO THE OR
[2022-10-03] MEDS ORDERED: dexamethasone sod phosphate 10mg/ml inj ONE (16:04)
[2022-10-03] MEDS ORDERED: sevoflurane 250ml liquid IH ONE (16:04)
[2022-10-03] MEDS ORDERED: midazolam 1 mg/ML 2ml injection ONE (16:12)
[2022-10-03] MEDS ORDERED: fentaNYL /PF 50mcg/ml 5ml ampule ONE (16:44)
[2022-10-03] MEDS ORDERED: [UNRECOGNIZED DRUG - OTHER] IV ONE (17:15)
[2022-10-03] MEDS ORDERED: gentamicin 40 MG/1 ML inj ONE (17:15)
[2022-10-03] MEDS ORDERED: LIDOcaine 2% (20mg/ml) 5ml vial ONE (17:40)
[2022-10-03] MEDS ORDERED: propofol inj 20 ML IV ONE (17:40)
[2022-10-03] MEDS ORDERED: rocuronium 10mg/ml inj IV ONE ×2 (17:40)
[2022-10-03] MEDS ORDERED: BUPIVACAINE liposomal/PF 13.3 MG/ML vial IM ONE (18:56)
[2022-10-03] MEDS ORDERED: BUPIVAcaine 0.5% inj/PF 30 ML ONE (18:56)
[2022-10-03] MEDS ORDERED: naloxone 0.4 mg/ml inj IV PRN (19:10)
[2022-10-03] MEDS ORDERED: ondansetron/PF 4mg/2ml inj ONE (19:18)
[2022-10-03] MEDS ORDERED: sugammadex 200mg/2ml injection IV ONE ×2 (19:19→19:20)
--- NOTE | 2022-10-03 19:45 | NUR ---
PT ARRIVED TO VIA BED ACCOMPANIED BY DR GALARZA-ANESTHESIA REPORT GIVEN, PT STILL SEDATED AND INTUBATED BY BREATHING SPONTANEOUSLY, VSS, ABD DRSG-CDI WITH ALVAREZ TRACIE PRESENT TO RIGHT SIDE-BLOODY DRAINAGE NOTED-SXN MAINTAINED, F/C PRESENT, PIV TO UPPER RIGHT ARM-LR RUNNING, PT BEING WARMED WITH DOROTHY HUGGER PRESENTLY
[2022-10-03] MEDS: HYDROmorphone/PF 0.2 MG/ML SYRINGE IV PRN ×2 (20:27→21:58)
--- NOTE | 2022-10-03 20:35 | NUR ---
ET TUBE OUT, PT WAKING UP, A BIT AGITATED TRYING TO MOVE IN BED-ATTEMPTING TO CALM AND KEEP SAFE, GRIMACING AND CLENCHING FISTS ALSO SHIVERING-GIVEN DEMEROL AND THEN DILAUDID FOR COMFORT, VSS, ALVAREZ EMPTIED-200ML, SPOKE WITH CHINMAY FROM FACILITY RE: LIKES AND DISLIKE OF PT...MUSIC/SINGING, CARD GAMES, CLEANING THINGS, LEA DOO, PRETENDING TO BE ON THE PHONE MAY CALL CHINMAY RN IF ANY QUESTIONS [phone]
--- NOTE | 2022-10-03 21:35 | NUR ---
PT RESTLESS, MOVES OFTEN IN BED-NEEDING TO BE REMINDED OR REDIRECTED, NEED TO HAVE HANDS WATCHED TO PREVENT PULLING OF LINES, ALVAREZ DRAINED AGAIN-200ML, PT TOLERATING ICE CHIPS, VSS, DIFFICULT TO ASSESS PAIN VS AGITATION BC OF SURROUNDINGS, DRSG TO ABD-CDI. REPORT CALLED TO RN-ALL QUESTIONS ANSWERED, TAKEN WITH ALL BELONGINGS TO RM [id number]-[id number] WITH AIDE RE:BEST PT CARE TO KEEP PT DISTRACTED AND SAFE PER HOME FACILITY, PRIMARY RN IN ROOM WELL.
[2022-10-03] MEDS ORDERED: polyethylene glycol 3350 17gm powd pack PO PRN (21:40)
[2022-10-03] MEDS ORDERED: ketorolac tromethamine 15mg/ml inj. IV PRN (21:45)
[2022-10-04] VITALS (9 sets, daily range): BP systolic 97–153; BP diastolic 55–76
[2022-10-04] MEDS: potassium CL 20mEq in D5-1/2NS 1,000 ML IV SCH ×4 (00:14→18:28)
[2022-10-04] MEDS: ceFOXitin inj 1,000 MG in normal saline 100ml IV soln 100 ML IV SCH ×2 (00:14→09:07)
[2022-10-04] MEDS ORDERED: HYDROmorphone inj. 0.5 MG/0.5 ML DISP.SYRIN IV PRN (03:25)
--- NOTE | 2022-10-04 04:10 | NUR ---
Pt is very restless, called hospitalist MD BASILIO order: Tele motor, Dilaudid 0.5 mg IV Q4H PRN for severe pain, later on patient fall to asleep, ALVAREZ drainage has 120 ml bloody liquids, V/S is stable. continue to closely monitor any change of condition.
--- NOTE | 2022-10-04 06:44 | NUR ---
Patient in room PCU 3012. I have received report from Placido OWUSU and had the opportunity to ask questions and assume patient care.
[2022-10-04 07:31] LABS: BASOPHILS % (AUTO) 0.1 % (0-1); EOSINOPHILS % (AUTO) 0 % (0-6); HEMATOCRIT 39.8 % (42.0-52.0); HEMOGLOBIN 13.6 g/dl (14.0-17.9); LYMPHOCYTES # (AUTO) 0.3 X10'3 (1.1-4.8); LYMPHOCYTES % (AUTO) 2.9 % (21-51); MEAN CORPUSCULAR HEMOGLOBIN 32.4 PG (27.0-31.0); MEAN CORPUSCULAR HGB CONC 34.2 g/dL (33.0-36.5); MEAN CORPUSCULAR VOLUME 94.7 FL (78-98); MONOCYTES # (AUTO) 0.5 X10'3 (0-0.9); MONOCYTES % (AUTO) 4.2 % (2-12); NEUTROPHILS # (AUTO) 10.7 X10'3 (1.8-7.7); NEUTROPHILS % (AUTO) 92.8 % (42-75); PLATELET COUNT 172 X10'3 (140-440); RED CELL DISTRIBUTION WIDTH 13.7 % (11.5-14.5); WHITE BLOOD COUNT 11.5 X10'3 (4.5-11.0)
[2022-10-04] MEDS ORDERED: metoprolol succinate 25mg (24-HOUR) SR. Tablet PO SCH (08:00)
[2022-10-04] MEDS: METHYLPHENIDATE HCL PO SCH (08:00)
[2022-10-04] MEDS: cetirizine 10mg tablet PO SCH (09:01)
[2022-10-04] MEDS: pantoprazole 40mg Tablet.DR PO SCH (09:01)
[2022-10-04] MEDS: aripiprazole 5mg tablet PO SCH ×2 (09:01→21:24)
[2022-10-04] MEDS: lactobacillus rhamnosus 10,000 MMU CELLS/CAPSULE PO SCH (09:01)
[2022-10-04] MEDS: docusate sod 100mg capsule PO SCH (09:01)
[2022-10-04] MEDS: levoTHYROXINE 75mcg tablet PO SCH (09:02)
[2022-10-04] MEDS: psyllium seed 3.4 gm packet PO SCH ×2 (09:02→21:25)
[2022-10-04] MEDS: multivitamins, therapeutics tablet PO SCH (09:02)
[2022-10-04] MEDS: ascorbic acid 500mg tablet PO SCH (09:02)
[2022-10-04] MEDS: benztropine 1mg tablet PO SCH ×2 (09:03→21:25)
[2022-10-04] MEDS: cholecalciferol (vitamin D3) 400 unit (10mcg) tablet PO SCH (09:03)
[2022-10-04] MEDS: HYDROmorphone/PF 0.2 MG/ML SYRINGE IV PRN (13:48)
--- NOTE | 2022-10-04 18:30 | NUR ---
Problems reprioritized. Patient report given, questions answered & plan of care reviewed with Hodan OWUSU.
[2022-10-05 02:00] VITALS: BP 95/60
[2022-10-05] MEDS: potassium CL 20mEq in D5-1/2NS 1,000 ML IV SCH ×3 (02:59→19:10)
--- NOTE | 2022-10-05 03:12 | NUR ---
IVF stopped per order, pt eating a drinking appropriately Addendum: 10/05/22 at 0312 by Hodan Hart RN Amended: Links added.
[2022-10-05 07:06] LABS: BASOPHILS % (AUTO) 0.5 % (0-1); EOSINOPHILS % (AUTO) 0.5 % (0-6); HEMATOCRIT 38.3 % (42.0-52.0); HEMOGLOBIN 13.1 g/dl (14.0-17.9); LYMPHOCYTES % (AUTO) 13.9 % (21-51); MEAN CORPUSCULAR HEMOGLOBIN 32.6 PG (27.0-31.0); MEAN CORPUSCULAR HGB CONC 34.3 g/dL (33.0-36.5); MEAN CORPUSCULAR VOLUME 94.9 FL (78-98); MEAN PLATELET VOLUME 9.6 FL (7.4-10.4); MONOCYTES # (AUTO) 0.5 X10'3 (0-0.9); MONOCYTES % (AUTO) 7.2 % (2-12); NEUTROPHILS # (AUTO) 5.4 X10'3 (1.8-7.7); NEUTROPHILS % (AUTO) 77.9 % (42-75); PLATELET COUNT 162 X10'3 (140-440); RED BLOOD COUNT 4.03 X10'6 (4.70-6.10); RED CELL DISTRIBUTION WIDTH 14.3 % (11.5-14.5)
[2022-10-05] MEDS: METHYLPHENIDATE HCL PO SCH (08:00)
[2022-10-05] MEDS: cetirizine 10mg tablet PO SCH (08:31)
[2022-10-05] MEDS: levoTHYROXINE 75mcg tablet PO SCH (08:31)
[2022-10-05] MEDS: benztropine 1mg tablet PO SCH ×2 (08:31→22:14)
[2022-10-05] MEDS: pantoprazole 40mg Tablet.DR PO SCH (08:31)
[2022-10-05] MEDS: metoprolol succinate 25mg (24-HOUR) SR. Tablet PO SCH (08:32)
[2022-10-05] MEDS: aripiprazole 5mg tablet PO SCH ×2 (08:33→22:13)
[2022-10-05] MEDS: multivitamins, therapeutics tablet PO SCH (08:33)
[2022-10-05] MEDS: psyllium seed 3.4 gm packet PO SCH ×2 (08:33→22:15)
[2022-10-05] MEDS: docusate sod 100mg capsule PO SCH (08:39)
[2022-10-05] MEDS: lactobacillus rhamnosus 10,000 MMU CELLS/CAPSULE PO SCH (08:47)
[2022-10-05] MEDS: cholecalciferol (vitamin D3) 400 unit (10mcg) tablet PO SCH (08:47)
[2022-10-05] MEDS: ascorbic acid 500mg tablet PO SCH (08:47)
[2022-10-05 18:00] VITALS: BP 100/63
--- NOTE | 2022-10-05 18:00 | NUR ---
Patient in room PCU 3012. I have received report from Sekou RN and had the opportunity to ask questions and assume patient care.
[2022-10-05 22:00] VITALS: BP 100/63
[2022-10-05] MEDS: cloNIDine 0.1 mg tablet PO SCH (22:14)
[2022-10-06 02:00] VITALS: BP 96/67
[2022-10-06] MEDS: potassium CL 20mEq in D5-1/2NS 1,000 ML IV SCH ×3 (03:10→20:21)
--- NOTE | 2022-10-06 03:43 | NUR ---
IV SALINE LOCK PER DAY SHIFT RN, NO POTASSIUM IV IS BEING GIVEN
--- NOTE | 2022-10-06 07:32 | NUR ---
Problems reprioritized. Patient report given, questions answered & plan of care reviewed with Sekou RN.
[2022-10-06] MEDS: METHYLPHENIDATE HCL PO SCH (08:00)
[2022-10-06] MEDS: docusate sod 100mg capsule PO SCH (08:00)
[2022-10-06] MEDS: ascorbic acid 500mg tablet PO SCH (08:50)
[2022-10-06] MEDS: levoTHYROXINE 75mcg tablet PO SCH (08:51)
[2022-10-06] MEDS: aripiprazole 5mg tablet PO SCH ×2 (08:51→20:02)
[2022-10-06] MEDS: multivitamins, therapeutics tablet PO SCH (08:51)
[2022-10-06] MEDS: lactobacillus rhamnosus 10,000 MMU CELLS/CAPSULE PO SCH (08:51)
[2022-10-06] MEDS: cholecalciferol (vitamin D3) 400 unit (10mcg) tablet PO SCH (08:51)
[2022-10-06] MEDS: pantoprazole 40mg Tablet.DR PO SCH (08:52)
[2022-10-06] MEDS: cloNIDine 0.1 mg tablet PO SCH ×3 (08:53→20:03)
[2022-10-06] MEDS: cetirizine 10mg tablet PO SCH (08:54)
[2022-10-06] MEDS: psyllium seed 3.4 gm packet PO SCH ×2 (08:54→20:03)
[2022-10-06] MEDS: metoprolol succinate 25mg (24-HOUR) SR. Tablet PO SCH (08:55)
[2022-10-06 09:04] LABS: BASOPHILS % (AUTO) 0.2 % (0-1); EOSINOPHILS % (AUTO) 0.6 % (0-6); HEMATOCRIT 38.8 % (42.0-52.0); HEMOGLOBIN 13.1 g/dl (14.0-17.9); LYMPHOCYTES # (AUTO) 0.6 X10'3 (1.1-4.8); LYMPHOCYTES % (AUTO) 9.2 % (21-51); MEAN CORPUSCULAR HEMOGLOBIN 32.4 PG (27.0-31.0); MEAN CORPUSCULAR HGB CONC 33.7 g/dL (33.0-36.5); MEAN PLATELET VOLUME 9.8 FL (7.4-10.4); MONOCYTES # (AUTO) 0.3 X10'3 (0-0.9); MONOCYTES % (AUTO) 4.7 % (2-12); NEUTROPHILS # (AUTO) 5.8 X10'3 (1.8-7.7); NEUTROPHILS % (AUTO) 85.3 % (42-75); PLATELET COUNT 163 X10'3 (140-440); RED BLOOD COUNT 4.04 X10'6 (4.70-6.10); RED CELL DISTRIBUTION WIDTH 14.3 % (11.5-14.5); WHITE BLOOD COUNT 6.8 X10'3 (4.5-11.0)
[2022-10-06] MEDS: benztropine 1mg tablet PO SCH ×2 (11:44→20:02)
[2022-10-06 14:04] LABS: ALANINE AMINOTRANSFERASE 29 U/L (12-78); ALBUMIN 2.8 G/DL (3.4-5.0); ALBUMIN/GLOBULIN RATIO 0.8 (1.1-1.5); ALKALINE PHOSPHATASE 81 IU/L (46-116); ANION GAP 4 (8-16); ASPARTATE AMINO TRANSFERASE 27 U/L (10-37); BILIRUBIN,TOTAL 0.5 MG/DL (0.1-1.0); BLOOD UREA NITROGEN 7 MG/DL (7-18); CALCIUM 8.7 MG/DL (8.5-10.1); CHLORIDE 104 MMOL/L (99-107); CREATININE 0.88 MG/DL (0.60-1.10); GLUCOSE 203 MG/DL (70-104); POTASSIUM 3.5 MMOL/L (3.5-5.1); SODIUM 140 MMOL/L (135-145); TOTAL CARBON DIOXIDE 32.1 MMOL/L (24-32); TOTAL PROTEIN 6.5 G/DL (6.4-8.2); eGFR > 90 ML/MIN
[2022-10-06 18:00] VITALS: BP 88/48
--- NOTE | 2022-10-06 18:00 | NUR ---
Patient in room PCU 3012. I have received report from Siri PARK and had the opportunity to ask questions and assume patient care.
[2022-10-06 22:00] VITALS: BP 113/60
--- NOTE | 2022-10-06 22:18 | NUR ---
DR. MORIN CHECKED ON THE PT AND ORDERED TO TAKE THE ALVAREZ DRAIN OUT, PACKING OF THE DRESSING OUT, AND DO THE DRESSING WITH DRY GAUGE ON TOP.
[2022-10-06] MEDS: morphine 4 MG/ML inj SYRINge IV PRN (23:07)
[2022-10-07 02:00] VITALS: BP 114/69
--- NOTE | 2022-10-07 02:05 | NUR ---
PATIENT TRANSFERRED FRO PCU TO SURGICAL. IN THE ROOM RESTING.
[2022-10-07] MEDS: potassium CL 20mEq in D5-1/2NS 1,000 ML IV SCH ×2 (04:15→11:35)
[2022-10-07 06:45] VITALS: BP 123/72
[2022-10-07 06:48] LABS: BASOPHILS % (AUTO) 0.7 % (0-1); EOSINOPHILS # (AUTO) 0.2 X10'3 (0-0.9); EOSINOPHILS % (AUTO) 2.7 % (0-6); HEMOGLOBIN 12.7 g/dl (14.0-17.9); LYMPHOCYTES # (AUTO) 0.9 X10'3 (1.1-4.8); LYMPHOCYTES % (AUTO) 16.4 % (21-51); MEAN CORPUSCULAR HEMOGLOBIN 32.8 PG (27.0-31.0); MEAN CORPUSCULAR HGB CONC 34.3 g/dL (33.0-36.5); MEAN CORPUSCULAR VOLUME 95.5 FL (78-98); MEAN PLATELET VOLUME 10.5 FL (7.4-10.4); MONOCYTES # (AUTO) 0.4 X10'3 (0-0.9); MONOCYTES % (AUTO) 6.6 % (2-12); NEUTROPHILS # (AUTO) 4.1 X10'3 (1.8-7.7); NEUTROPHILS % (AUTO) 73.6 % (42-75); PLATELET COUNT 187 X10'3 (140-440); RED BLOOD COUNT 3.87 X10'6 (4.70-6.10); RED CELL DISTRIBUTION WIDTH 14.2 % (11.5-14.5); WHITE BLOOD COUNT 5.6 X10'3 (4.5-11.0)
[2022-10-07] MEDS ORDERED: magnesium hydroxide 30ml (MOM) UD suspension PO ONE (08:00)
[2022-10-07] MEDS: levoTHYROXINE 75mcg tablet PO SCH (08:31)
[2022-10-07] MEDS: multivitamins, therapeutics tablet PO SCH (08:31)
[2022-10-07] MEDS: psyllium seed 3.4 gm packet PO SCH ×2 (08:31→20:47)
[2022-10-07] MEDS: metoprolol succinate 25mg (24-HOUR) SR. Tablet PO SCH (08:31)
[2022-10-07] MEDS: cetirizine 10mg tablet PO SCH (08:31)
[2022-10-07] MEDS: lactobacillus rhamnosus 10,000 MMU CELLS/CAPSULE PO SCH (08:31)
[2022-10-07] MEDS: benztropine 1mg tablet PO SCH ×2 (08:31→20:48)
[2022-10-07] MEDS: ascorbic acid 500mg tablet PO SCH (08:31)
[2022-10-07] MEDS: docusate sod 100mg capsule PO SCH (08:31)
[2022-10-07] MEDS: pantoprazole 40mg Tablet.DR PO SCH (08:31)
[2022-10-07] MEDS: cloNIDine 0.1 mg tablet PO SCH ×3 (08:32→20:50)
[2022-10-07] MEDS: METHYLPHENIDATE HCL PO SCH (08:35)
[2022-10-07] MEDS: cholecalciferol (vitamin D3) 400 unit (10mcg) tablet PO SCH (08:35)
[2022-10-07] MEDS ORDERED: ARIPIPRAZOLE 15 MG TABLET PO ONE (08:55)
[2022-10-07 10:00] VITALS: BP 108/64
[2022-10-07 18:00] VITALS: BP 98/50
--- NOTE | 2022-10-07 18:32 | NUR ---
Report given to Prudence RN, patient resting comforably in bed. Bed change done just prior to shift change
--- NOTE | 2022-10-07 18:35 | NUR ---
Patient in room LORIN 360. I have received report from SULTANA OWUSU and had the opportunity to ask questions and assume patient care.
[2022-10-07] MEDS: ARIPIPRAZOLE 15 MG TABLET PO SCH (20:50)
[2022-10-07 22:00] VITALS: BP 92/50
[2022-10-08] MEDS: morphine 4 MG/ML inj SYRINge IV PRN ×2 (02:06→07:05)
--- NOTE | 2022-10-08 04:50 | NUR ---
PATIENT PASSING GAS.
[2022-10-08 06:00] VITALS: BP 122/77
--- NOTE | 2022-10-08 06:19 | NUR ---
Problems reprioritized. Patient report given, questions answered & plan of care reviewed with MILENA OWUSU.
--- NOTE | 2022-10-08 06:20 | NUR ---
RECEIVED REPORT FROM FRANCOISE CERVANTES
[2022-10-08] MEDS: psyllium seed 3.4 gm packet PO SCH ×2 (07:07→20:57)
[2022-10-08] MEDS: cloNIDine 0.1 mg tablet PO SCH ×3 (07:08→21:00)
[2022-10-08] MEDS: ARIPIPRAZOLE 15 MG TABLET PO SCH ×2 (07:09→20:56)
[2022-10-08] MEDS: benztropine 1mg tablet PO SCH ×2 (07:09→20:56)
[2022-10-08] MEDS: docusate sod 100mg capsule PO SCH (07:09)
[2022-10-08] MEDS: lactobacillus rhamnosus 10,000 MMU CELLS/CAPSULE PO SCH (07:09)
[2022-10-08] MEDS: pantoprazole 40mg Tablet.DR PO SCH (07:09)
[2022-10-08 07:10] LABS: BASOPHILS % (AUTO) 0.8 % (0-1); EOSINOPHILS # (AUTO) 0.2 X10'3 (0-0.9); EOSINOPHILS % (AUTO) 3.9 % (0-6); HEMATOCRIT 36.3 % (42.0-52.0); HEMOGLOBIN 12.4 g/dl (14.0-17.9); MEAN CORPUSCULAR HEMOGLOBIN 32.5 PG (27.0-31.0); MEAN CORPUSCULAR HGB CONC 34.1 g/dL (33.0-36.5); MEAN CORPUSCULAR VOLUME 95.4 FL (78-98); MEAN PLATELET VOLUME 9.5 FL (7.4-10.4); MONOCYTES # (AUTO) 0.5 X10'3 (0-0.9); MONOCYTES % (AUTO) 9.9 % (2-12); NEUTROPHILS % (AUTO) 63.4 % (42-75); PLATELET COUNT 211 X10'3 (140-440); RED BLOOD COUNT 3.81 X10'6 (4.70-6.10); RED CELL DISTRIBUTION WIDTH 14.1 % (11.5-14.5); WHITE BLOOD COUNT 4.7 X10'3 (4.5-11.0)
[2022-10-08] MEDS: multivitamins, therapeutics tablet PO SCH (07:10)
[2022-10-08] MEDS: ascorbic acid 500mg tablet PO SCH (07:10)
[2022-10-08] MEDS: metoprolol succinate 25mg (24-HOUR) SR. Tablet PO SCH (07:11)
[2022-10-08] MEDS: cholecalciferol (vitamin D3) 400 unit (10mcg) tablet PO SCH (07:11)
[2022-10-08] MEDS: levoTHYROXINE 75mcg tablet PO SCH (07:11)
[2022-10-08] MEDS: cetirizine 10mg tablet PO SCH (07:11)
[2022-10-08] MEDS: METHYLPHENIDATE HCL PO SCH (08:00)
--- NOTE | 2022-10-08 09:48 | NUR ---
Initial: Pt s/p colostomy reversal this admit per EMR. Currently on MM5 diet w/ mostly 100% intake of meals meeting est needs. Recommend BSS w/ cloth packer to determine most appropriate texture and also changing to Low fiber diet given GI surgery. [facility] 10/05 receiving routine bowel care. Will continue to monitor. Recs: 1. Change to Low Fiber diet; BSS w/ CASHIER SUPERVISOR 2. Bowel care per MD 3. Weekly wts Addendum: 10/08/22 at [address] Amended: Links added.
[2022-10-08 11:00] VITALS: BP 103/69
[2022-10-08] MEDS: HYDROcodone/acetaminophen 10/325mg tab PO PRN (13:46)
[2022-10-08 18:00] VITALS: BP 90/59
--- NOTE | 2022-10-08 18:20 | NUR ---
gave report to keshav mcintyre
[2022-10-08 21:02] VITALS: BP 93/56
[2022-10-08 22:00] VITALS: BP 100/63
[2022-10-09 06:00] VITALS: BP 104/58
--- NOTE | 2022-10-09 06:22 | NUR ---
Problems reprioritized. Patient report given, questions answered & plan of care reviewed with FRANCOISE Arroyo.
--- NOTE | 2022-10-09 06:30 | NUR ---
RECEIVED REPORT FROM FRANCOISE BUI
[2022-10-09] MEDS: METHYLPHENIDATE HCL PO SCH (06:56)
[2022-10-09] MEDS: cloNIDine 0.1 mg tablet PO SCH ×3 (06:57→21:00)
[2022-10-09] MEDS: psyllium seed 3.4 gm packet PO SCH ×2 (07:00→23:02)
[2022-10-09] MEDS: pantoprazole 40mg Tablet.DR PO SCH (07:03)
[2022-10-09] MEDS: cholecalciferol (vitamin D3) 400 unit (10mcg) tablet PO SCH (07:03)
[2022-10-09] MEDS: ARIPIPRAZOLE 15 MG TABLET PO SCH ×2 (07:03→23:02)
[2022-10-09] MEDS: HYDROcodone/acetaminophen 10/325mg tab PO PRN (07:03)
[2022-10-09] MEDS: lactobacillus rhamnosus 10,000 MMU CELLS/CAPSULE PO SCH (07:04)
[2022-10-09] MEDS: ascorbic acid 500mg tablet PO SCH (07:04)
[2022-10-09] MEDS: benztropine 1mg tablet PO SCH ×2 (07:04→23:02)
[2022-10-09] MEDS: cetirizine 10mg tablet PO SCH (07:04)
[2022-10-09] MEDS: docusate sod 100mg capsule PO SCH (07:04)
[2022-10-09] MEDS: levoTHYROXINE 75mcg tablet PO SCH (07:05)
[2022-10-09] MEDS: metoprolol succinate 25mg (24-HOUR) SR. Tablet PO SCH (07:05)
[2022-10-09] MEDS: multivitamins, therapeutics tablet PO SCH (07:05)
--- NOTE | 2022-10-09 08:41 | NUR ---
called back ketan from [facility] but no one answered so i left a message to give me a call back
[2022-10-09 10:00] VITALS: BP 104/63
[2022-10-09 12:58] VITALS: BP 100/55
--- NOTE | 2022-10-09 12:58 | NUR ---
SENT A PAGE TO [employer] LETTING THEM KNOW I PULLED PT ALVAREZ DRAIN PER DR ROLDAN SO PT IS ABLE TO BE TRANSFERRED BACK TO FACILITY
[2022-10-09 18:00] VITALS: BP 103/85
--- NOTE | 2022-10-09 18:17 | NUR ---
GAVE REPORT TO FRANCOISE BUI
[2022-10-09 22:00] VITALS: BP 105/65
[2022-10-10 06:00] VITALS: BP 106/58
--- NOTE | 2022-10-10 06:30 | NUR ---
Problems reprioritized. Patient report given, questions answered & plan of care reviewed with FRANCOISE ABBOTT.
--- NOTE | 2022-10-10 06:40 | NUR ---
received report from keshav mcintyre
[2022-10-10] MEDS: cloNIDine 0.1 mg tablet PO SCH ×3 (07:52→21:00)
[2022-10-10] MEDS: METHYLPHENIDATE HCL PO SCH (07:59)
[2022-10-10] MEDS: psyllium seed 3.4 gm packet PO SCH ×2 (08:01→20:14)
[2022-10-10] MEDS: lactobacillus rhamnosus 10,000 MMU CELLS/CAPSULE PO SCH (08:02)
[2022-10-10] MEDS: multivitamins, therapeutics tablet PO SCH (08:02)
[2022-10-10] MEDS: ascorbic acid 500mg tablet PO SCH (08:02)
[2022-10-10] MEDS: metoprolol succinate 25mg (24-HOUR) SR. Tablet PO SCH (08:02)
[2022-10-10] MEDS: cholecalciferol (vitamin D3) 400 unit (10mcg) tablet PO SCH (08:02)
[2022-10-10] MEDS: docusate sod 100mg capsule PO SCH (08:02)
[2022-10-10] MEDS: levoTHYROXINE 75mcg tablet PO SCH (08:02)
[2022-10-10] MEDS: cetirizine 10mg tablet PO SCH (08:02)
[2022-10-10] MEDS: ARIPIPRAZOLE 15 MG TABLET PO SCH ×2 (08:03→20:14)
[2022-10-10] MEDS: pantoprazole 40mg Tablet.DR PO SCH (08:03)
[2022-10-10] MEDS: benztropine 1mg tablet PO SCH ×2 (08:03→20:14)
[2022-10-10 10:00] VITALS: BP 100/73
--- NOTE | 2022-10-10 14:28 | NUR ---
case reviewer spoke w/ketan at [facility] about pt d/c, case reviewer told me that their transport is unable to transport patient back to facility due to the facility not having transport available this late in the day, therefore, jarek advised tomorrow's primary nurse to call ketan at [phone] in the morning on 10/11/22 to set up transportation back to [facility] for tomorrow
[2022-10-10 18:00] VITALS: BP 115/70
--- NOTE | 2022-10-10 18:16 | NUR ---
gave report to Amanda OWSUU
[2022-10-10 22:00] VITALS: BP 112/49
--- NOTE | 2022-10-11 02:29 | NUR ---
PAGER ID: [phone] MESSAGE: Pt Rm 350A fever of 102.7 with Tylenol. Amanda [id number]
[2022-10-11 06:00] VITALS: BP 95/75
--- NOTE | 2022-10-11 06:07 | NUR ---
Problems reprioritized. Patient report given, questions answered & plan of care reviewed with FRANCOISE Tapia.
--- NOTE | 2022-10-11 06:15 | NUR ---
Patient in room LORIN 360. I have received report from Amanda OWUSU and had the opportunity to ask questions and assume patient care.
[2022-10-11] MEDS: docusate sod 100mg capsule PO SCH (07:42)
[2022-10-11] MEDS: cloNIDine 0.1 mg tablet PO SCH (07:42)
[2022-10-11] MEDS: psyllium seed 3.4 gm packet PO SCH (07:43)
[2022-10-11] MEDS: metoprolol succinate 25mg (24-HOUR) SR. Tablet PO SCH (07:43)
[2022-10-11] MEDS: pantoprazole 40mg Tablet.DR PO SCH (07:49)
[2022-10-11] MEDS: cetirizine 10mg tablet PO SCH (07:50)
[2022-10-11] MEDS: multivitamins, therapeutics tablet PO SCH (07:50)
[2022-10-11] MEDS: lactobacillus rhamnosus 10,000 MMU CELLS/CAPSULE PO SCH (07:50)
[2022-10-11] MEDS: ARIPIPRAZOLE 15 MG TABLET PO SCH (07:50)
[2022-10-11] MEDS: benztropine 1mg tablet PO SCH (07:50)
[2022-10-11] MEDS: ascorbic acid 500mg tablet PO SCH (07:50)
[2022-10-11] MEDS: cholecalciferol (vitamin D3) 400 unit (10mcg) tablet PO SCH (07:50)
[2022-10-11] MEDS: levoTHYROXINE 75mcg tablet PO SCH (07:50)
[2022-10-11] MEDS: METHYLPHENIDATE HCL PO SCH (07:51)
[2022-10-11 10:00] VITALS: BP 118/73
--- NOTE | 2022-10-11 12:15 | NUR ---
patient was discharged today and advised intermediate nurse to follow up with Dr. Coats next week in office. Patient was helped getting dressed and all belongings were gathered. Discharge instructions were explained to intermediate nurse and went over medication list. Patient left stable, alert and appropriate with the intermediate transportation and personal.
--- NOTE | 2022-10-11 14:00 | NUR ---
ORCHESTRATOR documentation: I have reviewed and agree with all interventions, assessments performed and documented by Princess Etienne LVN .
== END 2022-10-11 12:15 | disposition home or self-care (01) | DRG 231 ==
LOC: PAS IN 10-03 11:11 → PCU 3S 10-03 21:39 → SUR 3N 10-07 02:21
PROVIDERS: ADMIT Surgery; ATTEND Surgery
PROC: 0DNW0ZZ Release Peritoneum, Open Approach (ICD-10-PCS; 2022-10-03)
PROC: 3E0T3BZ Introduction of Anesthetic Agent into Peripheral Nerves and Plexi, Percutaneous Approach (ICD-10-PCS; 2022-10-03)
PROC: 3E0T33Z Introduction of Anti-inflammatory into Peripheral Nerves and Plexi, Percutaneous Approach (ICD-10-PCS; 2022-10-03)
PROC: 0DBN0ZZ Excision of Sigmoid Colon, Open Approach (ICD-10-PCS; principal; 2022-10-03 16:04)
DX: Z43.3 Encounter for attention to colostomy (principal); K56.2 Volvulus; I10 Essential (primary) hypertension; K66.0 Peritoneal adhesions (postprocedural) (postinfection)
CPT/HCPCS: 36415; 71045; 80053; 82948; 85025; 85610; 85730; 86885; 86900; 86901; 87070; 87075; 87081; 87102; 92508; 92616; 93005; 97161; 97530; A4349; A4618; A4649; A6212; A6253; A6402; A6407; A6449; A7000; C1758; C9290; G0378; J0131; J0694; J1100; J1170; J1580; J1885; J2175; J2250; J2270; J2405; J2704; J3010; J3480; J3490; J7070; J7120; S0020

== ENCOUNTER 2022-10-13 14:37 | Emergency (ER) | payer MEDICAID ==
[~2022-10-13] VITALS: Ht 182.9 cm; Wt 75.0 kg
[~2022-10-13 14:37] MED LIST changes: -ACET325T58 PO; -ARIP15TA3 PO; +ARIP5TAB14 PO; +ASCO500T10 PO; -CETI-90 PO; +CETI10TA14 PO; -CHOL400T PO; -CLON-528 PO; -CLON0.1T PO; +CLON0.1T2 PO; +DOCU100C40 PO; +ERGO400C PO; -FLUC100T64 PO; +LACT1CAP65 PO; -LOPE2TAB23 PO; -MAGN296S68 PO; -MAGN400O6 PO; -METH54TA12 PO; +METH54TA4 PO; +METO-384 PO; -METO-539 PO; -METO50TA7 PO; +MULT-1085 PO; -MULT-620 PO; +POLY17PO10 PO; -POLY510P31 PO; -PSYL283P10 PO; +PSYL3.4P5 PO
[2022-10-13 14:43] VITALS: BP 105/66
[2022-10-13] MEDS ORDERED: AMOX-580 PO (17:34)
== END 2022-10-13 17:50 | disposition home or self-care (01) ==
LOC: ER 14:39
DX: T81.30XA Disruption of wound, unspecified, initial encounter (principal); Z91.011 Allergy to milk products; Z79.899 Other long term (current) drug therapy; Z79.1 Long term (current) use of non-steroidal anti-inflammatories (NSAID); Z79.2 Long term (current) use of antibiotics; X58.XXXA Exposure to other specified factors, initial encounter; Y93.89 Activity, other specified; Y92.89 Other specified places as the place of occurrence of the external cause; Y99.8 Other external cause status
CPT/HCPCS: 99283; A6253; A6258

== ENCOUNTER 2022-11-24 10:46 | Emergency (ER) | payer MEDICAID ==
[~2022-11-24] VITALS: Ht 170.2 cm; Wt 72.0 kg
[2022-11-24 11:01] VITALS: BP 102/63
[2022-11-24] MEDS ORDERED: lactulose 20gm/30ml cup PO ONE (13:05)
[2022-11-24] MEDS ORDERED: LACT10SO57 PO (13:21)
== END 2022-11-24 13:42 | disposition home or self-care (01) ==
LOC: ER 10:46
DX: K59.00 Constipation, unspecified (principal); Z91.011 Allergy to milk products; Z98.890 Other specified postprocedural states
CPT/HCPCS: 99283

== ENCOUNTER 2024-10-13 08:39 | Emergency (ER) | payer MEDICAID ==
[~2024-10-13] VITALS: Ht 172.7 cm; Wt 69.8 kg
[~2024-10-13 08:39] MED LIST changes: +ARIP5TAB12 PO; -ARIP5TAB14 PO; -BENZ1TAB7 PO; +BENZ1TAB97 PO; +LACT-383 PO
[2024-10-13 09:27] LABS: BASOPHILS % (AUTO) 0.4 % (0-1); EOSINOPHILS % (AUTO) 0.4 % (0-6); HEMATOCRIT 43.8 % (42.0-52.0); HEMOGLOBIN 14.9 g/dl (14.0-17.9); LYMPHOCYTES # (AUTO) 0.9 X10'3 (1.1-4.8); LYMPHOCYTES % (AUTO) 13.4 % (21-51); MEAN CORPUSCULAR HEMOGLOBIN 32.2 PG (27.0-31.0); MEAN CORPUSCULAR VOLUME 94.9 FL (78-98); MONOCYTES # (AUTO) 0.4 X10'3 (0-0.9); MONOCYTES % (AUTO) 6.6 % (2-12); NEUTROPHILS # (AUTO) 5.1 X10'3 (1.8-7.7); NEUTROPHILS % (AUTO) 79.2 % (42-75); PLATELET COUNT 240 X10'3 (140-440); RED BLOOD COUNT 4.62 X10'6 (4.70-6.10); RED CELL DISTRIBUTION WIDTH 15.1 % (11.5-14.5); WHITE BLOOD COUNT 6.5 X10'3 (4.5-11.0)
[2024-10-13 10:07] LABS: ALANINE AMINOTRANSFERASE 27 U/L (12-78); ALBUMIN 3.6 G/DL (3.4-5.0); ALBUMIN/GLOBULIN RATIO 0.9 (1.1-1.5); ALKALINE PHOSPHATASE 95 IU/L (46-116); ANION GAP 6 (8-16); ASPARTATE AMINO TRANSFERASE 18 U/L (10-37); BILIRUBIN,TOTAL 0.5 MG/DL (0.1-1.0); BLOOD UREA NITROGEN 13 MG/DL (7-18); BUN/CREATININE RATIO 12.4 (10.0-20.0); CHLORIDE 102 MMOL/L (99-107); CREATININE 1.05 MG/DL (0.60-1.10); LIPASE 28 U/L (16-77); POTASSIUM 3.4 MMOL/L (3.5-5.1); SODIUM 140 MMOL/L (135-145); TOTAL CARBON DIOXIDE 31.7 MMOL/L (24-32); TOTAL PROTEIN 7.8 G/DL (6.4-8.2); eCRCL 88 ML/MIN; eGFR 77 ML/MIN
[2024-10-13 10:09] LABS: GLUCOSE 105 MG/DL (70-104)
[2024-10-13] MEDS: LORazepam 1 MG tablet PO ONE (12:07)
[2024-10-13] MEDS ORDERED: mineral oil 133ml enema RC PRN (14:45)
[2024-10-13 17:01] VITALS: BP 127/67; PULSE 86; RESP 16; TEMP 97.8; O2SAT 98
== END 2024-10-13 17:04 | disposition home or self-care (01) ==
LOC: ER 08:39
DX: K56.41 Fecal impaction (principal); Z90.49 Acquired absence of other specified parts of digestive tract; Z79.899 Other long term (current) drug therapy; Z91.011 Allergy to milk products
CPT/HCPCS: 36415; 74022; 74176; 80053; 83690; 85025; 99284